=== PATIENT | male | born 1965 | race Caucasian/White ===

== ENCOUNTER 2022-08-09 14:26 | Outpatient (CLI) | payer BC, SELFPAY ==
[2022-08-09 14:33] LABS: Albumin* 4.9 g/dL (3.3-5.0); Chloride* 102 mmol/L (96-114); Sodium* 138 mmol/L (135-149)
[2022-08-09 14:35] LABS: Cholesterol* 258 mg/dL (90-199)
[2022-08-09 14:36] LABS: Alkaline Phosphatase* 55 U/L (40-150); Aspartate Amino Transferase* 44 U/L (12-35); Bilirubin Total* 0.7 mg/dL (0.1-1.5); Blood Urea Nitrogen* 21 mg/dL (7-30); Carbon Dioxide* 29 mmol/L (20-32); Creatinine* 0.7 mg/dL (0.5-1.5); Estimated Glomerular Filt Rate 107 ml/min; Glucose* 94 mg/dL (60-115); Total Protein* 7.8 g/dL (6.0-8.3)
[2022-08-09 14:37] LABS: Alanine Aminotransferase* 36 U/L (4-50); Calcium* 8.5 mg/dL (8.4-10.6); HDL Cholesterol* 73 mg/dL (>=40); LDL Cholesterol Calculated 172 mg/dL (<100); Triglycerides* 65 mg/dL (40-149)
[2022-08-09 19:50] LABS: PSA Screen* 0.55 ng/mL (0.10-4.00)
== END 2022-08-09 14:27 | disposition home or self-care (01) ==
PROVIDERS: PCP Family Medicine; Visit Provider Family Medicine
DX: Z00.00 Encounter for general adult medical examination without abnormal findings (principal); K63.5 Polyp of colon; Z12.5 Encounter for screening for malignant neoplasm of prostate; Z13.6 Encounter for screening for cardiovascular disorders
CPT/HCPCS: 80053; 80061; 84153

== ENCOUNTER 2022-08-18 07:24 | Outpatient (CLI) | payer BC, SELFPAY | END 2022-08-18 07:25 | disposition home or self-care (01) | LOC: OP CLINIC 07:25 | PROVIDERS: PCP Family Medicine; Visit Provider Surgery | DX: Z12.11 Encounter for screening for malignant neoplasm of colon (principal); K63.5 Polyp of colon; K57.30 Diverticulosis of large intestine without perforation or abscess without bleeding; Z86.010 Personal history of colon polyps | CPT/HCPCS: 45385; 88305; 99153; J1200; J2250; J3010 ==

== ENCOUNTER 2023-02-09 06:10 | Emergency (ER) | payer BC, SELFPAY ==
[2023-02-09] VITALS (12 sets, daily range): BP systolic 107–115; BP diastolic 64–86; PULSE 52–60; RESP 16–18; TEMP 36.7; O2SAT 98–100; BMI 20.9
--- NOTE | 2023-02-09 06:48 | CRLHL7_ITS ---
For Patients: As a result of the Century Cures Act, medical imaging exams and procedure reports are released immediately into your electronic medical record. You may view this report before your referring provider. If you have questions, please contact your health care provider. INDICATION: Syncope TECHNIQUE: Chest 2 views. COMPARISON: Chest x-ray September 28, 2017 FINDINGS: Cardiovascular and mediastinum: Heart size and vasculature are normal in caliber and appearance. Lungs and pleural spaces: Lungs are clear. No sign of infiltrate. No sign of pleural effusion. No pneumothorax. Bones and soft tissues: No significant findings. IMPRESSION: No evidence of acute cardiopulmonary process. Dictated by José Miguel Berger MD @ 02/09/2023 7:52:59 AM (Electronically Signed)
--- NOTE | 2023-02-09 06:52 | ED.GENADULT ---
HPI - General Adult General Chief complaint: Syncope/Fainted Stated complaint: nausea, fever, fainting Time Seen by Provider: 02/09/23 06:11 Source: patient and family Mode of arrival: ambulatory Limitations: no limitations History of Present Illness HPI narrative: Patient with no prior cardiac history presents with a syncopal episode. Patient reports that he had felt normally until after dinner. He started to feel fatigued with mild nausea at about 9:00 p.m.. He went to bed early. He woke at 4:00 a.m. with a feeling of weakness, nausea and abdominal cramping like he was about to have diarrhea. Quickly went to the bathroom. As he sat down on the toilet he began to feel very lightheaded as if he was going to pass out. He had a bout of diarrhea and did pass out, falling forward. He does not remember much of the fall but did wake up on the ground. He thinks he was probably out a few minutes. There was no evidence of tongue biting, seizure-like activity. He was able to lift himself back up onto the toilet where he had another large diarrhea type bowel movement. No blood. He felt nauseated but no vomiting. He was able to call for his who came to help him back to bed. He continued to feel nauseated and weak. No chest pain. He does not have any type of wearable heart monitor, Apple watch or fit bit. 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 He has no personal history of cardiac disease. He does have a history of hyperlipidemia inserted statin therapy 1 month ago. He does have a family history of coronary artery disease but not at early ages. Patient with no prior history of syncope. Currently denying any abdominal pain, weakness is improving and nausea is improved as well. No prior Holter monitor or echo. No intoxication, no illicit substances. Past medical history notable only for hyperlipidemia. He has had a few benign surgeries, only prescription long-term medicine is a statin. Denies allergies. Family history notable for coronary artery disease but not premature ages. Nonsmoker. ROS is notable for the GI and generalized symptoms as above as well as the syncope. Otherwise he denies times 12 systems. Related Data Previous Rx's Medication Instructions Recorded albuterol sulfate 90 mcg/actuation 2 puff inhalation Q6H PRN 08/08/22 aerosol inhaler shortness of breath or wheezing #8.5 grams rosuvastatin 10 mg tablet (Crestor) 10 mg PO QHS #90 tabs 01/03/23 Allergies Allergy/AdvReac Type Severity Reaction Status Date / Time No Known Drug Allergies Allergy Verified 02/09/23 06:30 PFSH PFS Medical History Acute low back pain ?M54.50 - Low back pain, unspecified (ICD-10) Benign prostatic hyperplasia with urinary obstruction ?N40.1 - Benign prostatic hyperplasia with lower urinary tract symptoms (ICD-10) ?N13.8 - Other obstructive and reflux uropathy (ICD-10) Colon polyps ?K63.5 - Polyp of colon (ICD-10) Erectile dysfunction ?N52.9 - Male erectile dysfunction, unspecified (ICD-10) Mild persistent asthma ?J45.30 - Mild persistent asthma, uncomplicated (ICD-10) Prostatitis ?N41.9 - Inflammatory disease of prostate, unspecified (ICD-10) Surgical History History of colonoscopy ?Z98.890 - Other specified postprocedural states (ICD-10) Social History Smoking Status: Never smoker Second hand tobacco smoke exposure: No How often do you have a drink containing alcohol: never How often do you have six or more drinks on one occasion: Never AUDIT-C Alcohol total score: 0 Non-prescribed substance use: denies use Exam Const: Vital Signs, click to edit/add: Vital Signs - 24 hr 02/09/23 06:27 02/09/23 06:35 02/09/23 06:40 Temperature 98.0 F Pulse Rate 59 L Pulse Rate [Left P ulse Oximeter] 53 L Respiratory Rate 18 16 Blood Pressure 110/74 Blood Pressure [Ri ght Upper Arm] 115/86 Pulse Oximetry 99 99 99 Oxygen Delivery Me thod Room Air Documenting provider has reviewed patient's vital signs: yes Common normals: no apparent distress and alert General appearance: cooperative, comfortable and well kempt Orientation/consciousness: Yes awake HENMT: Common normals: TM's normal bilaterally Tympanic membrane: TM's normal bilaterally Other: Abrasions consistent with forward fall and forehead and bridge of nose. No skull deformity. Facial bones are otherwise normal with normal jaw. Opens and closes mouth normally. Normal view come mucosa, tongue and dentition, no signs of seizure activity. Normal posterior oropharynx. Eye: Common normals: PERRL and conjunctivae normal General eye: normal appearance of both eyes Conjunctiva: conjunctiva(e) normal Pupil: PERRL Neck & C-Spine: Common normals: full ROM and no lymphadenopathy Cervical spine: cervical ROM normal; no cervical spine tenderness Resp: Common normals: normal respiratory effort, no use of accessory muscles and clear to auscultation bilaterally Effort & inspection: able to speak in complete sentences Auscultation: clear to auscultation bilaterally Cardio: Common normals: regular rate, regular rhythm, S1 normal heart sound, S2 normal heart sound, no murmurs and peripheral pulses 2+ throughout Rate: regular rate Rhythm: regular rhythm Heart sounds: S1 normal and S2 normal Peripheral pulses: pulses 2+ throughout GI: Common normals: Normal to inspection, nondistended, normoactive bowel sounds present, soft to palpation, non-tender, no hepatosplenomegaly and no masses Palpation: soft and no hepatosplenomegaly Extremity: Common normals: normal to inspection, normal capillary refill and no pedal edema Neuro: Common normals: moves all extremities and no focal motor deficits Sensorium/orientation: awake and alert Speech: speech normal Motor exam: no movement abnormalities noted Psych: Appearance: well kempt Attitude: engaged Activity/motor behavior: appropriate eye contact Insight: insight good Judgement: judgment good Skin: Narrative: Slight abrasion to forehead and bridge of nose. No active bleeding Course Vital Signs Vital signs: Initial Vital Signs Temperature 98.0 F 02/09/23 06:27 Temperature Source Temporal Artery Scan 02/09/23 06:27 Pulse Rate 53 L 02/09/23 06:27 Respiratory Rate 18 02/09/23 06:27 Blood Pressure 115/86 02/09/23 06:27 Blood Pressure Mean 95 02/09/23 06:27 Blood Pressure Position Sitting 02/09/23 06:27 Pulse Oximetry 99 02/09/23 06:27 Oxygen Delivery Method Room Air 04/27/23 06:27 Vital Signs Temperature 98.0 F 02/09/23 06:27 Pulse Rate 53 L 02/09/23 06:27 Respiratory Rate 18 02/09/23 06:27 Blood Pressure 115/86 02/09/23 06:27 Pulse Oximetry 99 02/09/23 06:27 Oxygen Delivery Method Room Air 02/09/23 06:27 Temperature 98.0 F 02/09/23 06:27 Pulse Rate 59 L 02/09/23 06:35 Respiratory Rate 16 02/09/23 06:35 Blood Pressure 110/74 02/09/23 06:35 Pulse Oximetry 99 02/09/23 06:40 Oxygen Delivery Method Room Air 02/09/23 06:27 Medical Decision Making MDM Narrative Medical decision making narrative: Suspect vagal syncope, naturally quite bradycardic. Observed heart rate prior to entering room, runs around 52 at rest. Heart rate does increase as high as 68 with activity during exam. Will continue to monitor on application support consultant. Patient has had no further episodes of diarrhea and vomiting, his nausea is improving. Will check basic labs, EKG, give 1 L of LR. Chest x-ray. Would benefit from Holter monitor to determine just have bradycardic he is running in his everyday life, consider echo if this is nonrevealing. Cannot exclude coronary artery disease, structural heart disease, anemia, electrolyte abnormality. Await labs. Update: Patient still not having any chest pain. He continues to have some mild asymptomatic bradycardia 50-60 on monitor, labs and x-ray are reviewed and reassuring. Awaiting 90 minute troponin. My shift is almost finished. Will hand over to my in coming day shift partner to review 2nd troponin and intervene only if abnormal. Discussed findings with patient. Would recommend outpatient Holter monitor. Alarm symptoms reviewed and discussed. He verbalized understanding and agreement. Lab Data Lab results reviewed: Yes I reviewed the patient's lab results Lab results narrative: Overall reassuring, will perform 90 minute troponin. Labs: Lab Results 02/09/23 Range/Units 06:40 WBC 6.73 (4.50-11.00) K/uL RBC 5.18 (4.30-5.90) m/uL Hgb 16.8 (13.5-17.5) gm/dL Hct 47.8 (37.0-53.0) % MCV 92 (80-100) fL MCH 32 (26-34) pg MCHC 35 (32-36) gm/dL RDW Coeff of Marifer 12.4 (11.5-15.5) % Plt Count 237 (140-440) K/uL Neut % (Auto) 86.0 H (42.0-72.0) % Lymph % (Auto) 6.5 L (20-44) % Garfield % (Auto) 5.9 (0.0-11.0) % Eos % (Auto) 1.2 (0.0-7.0) % Baso % (Auto) 0.1 (0.0-3.0) % Neut # (Auto) 5.80 (1.7-7.0) K/uL Lymph # (Auto) 0.40 L (0.90-2.90) K/uL Garfield # (Auto) 0.40 (0.00-0.90) K/UL Eos # (Auto) 0.08 (0.00-0.50) K/uL Baso # (Auto) 0.01 (0.00-0.30) K/uL Sodium 134 L (135-149) mmol/L Potassium 4.8 (3.6-5.1) mmol/L Chloride 104 (96-114) mmol/L Carbon Dioxide 25 (20-32) mmol/L BUN 18 (7-30) mg/dL Creatinine 0.8 (0.5-1.5) mg/dL Estimated Creat Clear 98.04 Estimated GFR 103 ml/min Glucose 145 H (60-115) mg/dL Calcium 9.2 (8.4-10.6) mg/dL Troponin I 0.01 (0.01-0.04) ng/mL C-Reactive Protein 1.4 H (0.5-1.0) mg/dL NT-Pro-B Natriuret Pep 25 pg/mL POC Troponin I 0.03 (0.01-0.04) ng/ml Imaging Data Chest x-ray: Attestation: I have reviewed the pertinent imaging results. My impression: Normal chest x-ray. No signs of cardiomyopathy, pleural effusion or vascular congestion Radiologist's impression: IMPRESSION: No evidence of acute cardiopulmonary process. ECG Data Attestation: I personally reviewed and interpreted this ECG as follows: Prior ECG tracings: not available for review Interpretation: Sinus bradycardia, rate of 51. Good R-wave progression, normal axis. No significant ST or T-wave abnormalities. No ischemia. Other than mild bradycardia, normal EKG. Discharge Plan Discharge Clinical Impression: Vagal bradycardia Patient Disposition: Home w/ Parent or Adult Condition: Improved Instructions: Syncope (ED) Additional Instructions: As we discussed, your heart rate runs naturally low. Unfortunately, when you get GI illness and your body preps to have a large bout of diarrhea, your heart rate and blood pressure will drop. When your heart rate and blood pressure naturally run low, this can cause you to pass out. We see this commonly in athletes. Your given fluids to counteract the low blood pressure and we monitored your heart rate. There are no signs of heart attack, electrolyte abnormality, kidney disease, structural heart disease or major infection. I do suspect that you have a mild viral gastroenteritis, the stomach flu. Be mindful of the fact that your more likely to have these types of episodes than atypical person because your heart rate runs low. You can consider investing in a heart rate monitor such as a SeeClickFix or Apple watch if you choose to monitor this. I would recommend that you see your primary care doctor and have a Holter monitor placed. This is aware will heart monitor for a couple of days which can give us much more information about your heart rhythms and detect any type of abnormality. They will put this on in the office at your primary care provider. For today, drink plenty of fluids and rest. It is okay to use Imodium for diarrhea. Activity Level: No Restrictions Discharge Diet: Regular Prescriptions: No Action albuterol sulfate 90 mcg/actuation HFA aerosol inhaler 2 puff inhalation Q6H PRN (Reason: shortness of breath or wheezing) Qty: 8.5 6RF rosuvastatin [Crestor] 10 mg tablet 10 mg PO QHS Qty: 90 1RF Follow Up/Referrals: Daniel Ford MD [Primary Care Provider] - 7 Days (Holter monitor, recheck after ED visit) Stand Alone Forms: [employer] Info Instructions
[2023-02-09] MEDS: LACTATED RINGERS 1000 ML 1,000 ML IV (06:55)
[2023-02-09 07:02] LABS: Troponin, Point-of-Care* 0.03 ng/ml (0.01-0.04)
[2023-02-09 07:04] LABS: Basophils Absolute Auto 0.01 K/uL (0.00-0.30); Basophils Percent Auto 0.1 % (0.0-3.0); Eosinophils Absolute Auto 0.08 K/uL (0.00-0.50); Eosinophils Percent Auto 1.2 % (0.0-7.0); Hematocrit 47.8 % (37.0-53.0); Hemoglobin* 16.8 gm/dL (13.5-17.5); Immature Granulocytes Abs Auto 0.02 K/uL (0.00-0.30); Immature Granulocytes Pct Auto 0.3 %; Lymphocytes Percent Auto 6.5 % (20-44); Mean Corpuscular HGB Conc 35 gm/dL (32-36); Mean Corpuscular Hemoglobin 32 pg (26-34); Mean Corpuscular Volume 92 fL (80-100); Monocytes Percent Auto 5.9 % (0.0-11.0); Platelet Count* 237 K/uL (140-440); RDW Coefficient of Variation % 12.4 % (11.5-15.5); Red Blood Count 5.18 m/uL (4.30-5.90); White Blood Count* 6.73 K/uL (4.50-11.00)
[2023-02-09 07:16] LABS: Chloride* 104 mmol/L (96-114); Potassium* 4.8 mmol/L (3.6-5.1); Sodium* 134 mmol/L (135-149)
[2023-02-09 07:19] LABS: Carbon Dioxide* 25 mmol/L (20-32); Creatinine* 0.8 mg/dL (0.5-1.5); Est. Creatinine Clearance* 98.04; Estimated Glomerular Filt Rate 103 ml/min
[2023-02-09 07:20] LABS: Blood Urea Nitrogen* 18 mg/dL (7-30); Calcium* 9.2 mg/dL (8.4-10.6); Glucose* 145 mg/dL (60-115)
[2023-02-09 07:22] LABS: C Reactive Protein* 1.4 mg/dL (0.5-1.0)
[2023-02-09 07:32] LABS: NT Pro B Type NatriureticPept* 25 pg/mL; Troponin I* 0.01 ng/mL (0.01-0.04)
[2023-02-09 07:34] LABS: Slide Review Reflex No
== END 2023-02-09 09:00 | disposition home or self-care (01) ==
LOC: ED 07:04
PROVIDERS: Emergency Provider Family Medicine; PCP Family Medicine
DX: R00.1 Bradycardia, unspecified (principal)
CPT/HCPCS: 36415; 71046; 80048; 83880; 84484; 85025; 86140; 93005; 94761; 99283; 99284; J7120

== ENCOUNTER 2023-03-30 11:29 | Outpatient (CLI) | payer BC, SELFPAY ==
--- OUTSIDE RECORDS SUMMARY | 2023-04-02 09:36 | XMS_ITS | Continuity of Care Document ---
Author Name Unknown Organization [facility] Address [address] [place] [address] Phone Care Team Providers Care Hose Tender Name Role Phone Canelo Ramos MD Unavailable Unavailab le Allergies, Adverse Reactions, Alerts Substance Reaction Status Criticality No Known Allergies Active No Inform ation Medications Medication Instructions Dosage Effective Dates (start - stop) Status Comments FISH OIL (unknown strength) Not Available - Active MULTIVITAMINS (unknown strength) Not Available - Active ZYRTEC (unknown strength) Not Available - Active HYDROcodone-acetaminoph en (unknown strength) Not Available - Active ALEVE (unknown strength) Not Available - Active Procedures Procedure Date Postop Followup Visit Pa Assist Low Back Disk Surgery/Decompre ss Postop Followup Visit Low Back Disk Surgery/Decompress 2016 Office/Outpatient Visit,Est, Mod 2016 Office/Outpatient Visit,Est, Mod 2016 Office/Outpatient Visit,New, Mod 2016 Advance Directives Directive Yes / No Effective Date File Name No Information Encounters Encounter Description Practice Location Reason(s) For Visit Diagnoses Date Provider Providers Copied on Encounter [facility], [address], [place], [id number], [place] tel:[phone] [facility] No Information 8 Rachel marcus [facility], [address], [address], [place], [id number] , [place]. tel:[phone] [facility], [address], [place], [id number], [place] tel:[phone] [facility] Encounter for other specified surgical aftercare 8 Ramos Jason . [facility], [address], [address], [place], [place], [id number] , [place]. [phone] Referring Provider: Jess Tavarez [facility] [address] [place], [address]. tel:[phone] [facility], [address], [place], [place], [id number], [place] tel:[phone] [facility] No Information 8 Nadir Keller. [facility], [address] [place] [address] [place] [address], [place], [address], [place]. [phone] Referring Provider: Jess Tavarez [facility] [address] [place], [address]. tel:[phone] [facility], [address], [place], [place], [id number], [place] tel:[phone] [facility] [place] - [facility] Encounter for other specified surgical aftercare [facility], [address], [address], [place], [place], [id number] , [place]. tel:[phone] Referring Provider: Jess Tavarez [facility] [address] [place], [address]. tel:[phone] [facility], [address], [place], [place], [id number], [place] tel:[phone] [facility] No Information [facility] . [facility], [address], [address], [place], [place], [address] , [place]. [phone] Referring Provider: Jess Tavarez [facility] [address] [place], [address]. tel:[phone] Office/Outpat ient Visit,Est, Mod [facility], [address], [facility] [place], [id number], [place] tel:[phone] [facility] Other intervertebral disc displacement, lumbar region 7 [facility], [address] [place] [address], [address], [place], [place], [id number] , [place]. [phone] Referring Provider: Jess Tavarez [facility] [address] [place], [address]. tel:[phone] Office/Outpat ient Visit,Est, Mod [facility], [address], [facility] [place], [id number], [place] tel:[phone] [facility] Other intervertebral disc displacement, lumbar region 7 [facility] er. [facility], [address] [place] [address], [address], [place], [place], [address] , [place]. [phone] Referring Provider: Jess Tavarez [facility] [address] [facility] [place], [address]. tel:[phone] Office/Outpat ient Visit,New, Mod [facility], [address], [facility] [place] [place], [id number], [place] tel:[phone] [facility] [facility] [place] Radiculopathy, lumbar region Sep- 7 [facility] er. [facility], [address] [place] [address], [address], [place], [place], [id number] , [place]. [phone] Referring Provider: Jess Tavarez [facility] [address] [place] [address], [address]. tel:[phone] Family History Family Member Type Diagnosis Age At Onset No Information Payers Payer name Insurance type Covered alliance party ID Lastdee josiehortencia(s) Desiree Smallscarson QUEZADA [id number] Social History Type Description Quantity Date Captured Comments Sex Male Smoking Status No Information Chief Complaint And Reason For Visit No Information Reason For Referral Reason For Referral No Information Plan Of Treatment Date Type Action Status No Information History Of Present Illness Encounter Date Complaint History Of Prese nt Illness No Information Functional Status Date Functional Assessmen t No Information Instructions Date Instruction Additional Joshuar mai Blood Pressure Management Relate d to Unspecified Essential Hypertension Instructed to return to General Practitioner timeframe: 1 Month. Related to Unspecified Essential Hypertension Assessments Type Assessment Date No Information Patient Care Teams Name Effective Dates (start - stop) Status Members No Information
== END 2023-03-30 11:30 | disposition home or self-care (01) ==
LOC: NFLDREF 04-02 09:35
PROVIDERS: PCP Family Medicine; Referring Provider Family Medicine; Visit Provider Family Medicine
DX: E78.00 Pure hypercholesterolemia, unspecified (principal); Z00.00 Encounter for general adult medical examination without abnormal findings; R55 Syncope and collapse; L30.9 Dermatitis, unspecified; Z23 Encounter for immunization
CPT/HCPCS: 80061; 84460

== ENCOUNTER 2023-04-27 13:48 | Outpatient (CLI) | payer BC, SELFPAY ==
--- OUTSIDE RECORDS SUMMARY | 2023-04-27 13:49 | XMS_ITS | Continuity of Care Document ---
Author Name Unknown Organization [facility] Address [address] [place] [address] Phone Care Team Providers Care Car Electronics Installer Name Role Phone Canelo Ramos MD Unavailable Unavailab le Allergies, Adverse Reactions, Alerts Substance Reaction Status Criticality No Known Allergies Active No Inform ation Medications Medication Instructions Dosage Effective Dates (start - stop) Status Comments ZYRTEC (unknown strength) Not Available - Active MULTIVITAMINS (unknown strength) Not Available - Active FISH OIL (unknown strength) Not Available - Active HYDROcodone-acetaminoph [...] Copied on Encounter [facility], [address], [place], [id number], [place] tel:[phone] [facility] No Information 8 Rachel marcus [facility], [address], [address], [place], [id number] , [place]. tel:[phone] [facility], [address], [place], [id number], [place] tel:[phone] [facility] - [facility] Encounter for other specified surgical aftercare 8 Ramos Jason . [facility] [place], [address], [address], [place], [place], [id number] , [place]. [phone] Referring Provider: Jess Tavarez [facility] [address] [place], [address]. tel:[phone] [facility], [address], [place], [place], [id number], [place] tel:[phone] [facility] No Information 8 Nadir Keller. [facility] [place], [address] [place] [address] [address], [place], [address], [place]. [phone] Referring Provider: Jess Tavarez [facility] [address] [place], [address]. tel:[phone] [facility], [address], [place], [place], [id number], [place] tel:[phone] [facility] - [facility] Encounter for other specified surgical aftercare [facility] [place], [address], [address], [place], [place], [id number] , [place]. tel:[phone] Referring Provider: Jess Tavarez [facility] [address] [place], [address]. tel:[phone] [facility], [address], [place], [place], [id number], [place] tel:[phone] [facility] No Information 7 [facility] . [facility] [place], [address], [address], [place], [place], [id number] , [place]. [phone] Referring Provider: Jses Tavarez [facility] [address] [place], [address]. tel:[phone] Office/Outpat ient Visit,Est, Mod [facility], [address], [facility] [place] [id number], [place] tel:[phone] [facility] Other intervertebral disc displacement, lumbar region 7 [facility], [address] [place] [address], [address], [place], [place], [id number] , [place]. [phone] Referring Provider: Jess Tavarez [facility] [address] [place], [address]. tel:[phone] Office/Outpat ient Visit,Est, Mod [facility], [address], [facility] [place], [id number], [place] tel:[phone] [facility] Other intervertebral disc displacement, lumbar region 7 [facility] er. [facility], [address] [place] [address], [address], [place], [place], [address] , [place]. [phone] Referring Provider: Jess Tavarez [facility] [address] [facility] [place], [address]. tel:[phone] Office/Outpat ient Visit,New, Mod [facility], [address], [facility] [place] [place], [id number], [place] tel:[phone] [facility] - [place] Radiculopathy, lumbar region Sep- 7 [facility] er. [facility], [address] [place] [address], [address], [place], [place], [id number] , [place]. [phone] Referring Provider: Jess Tavarez [facility] [address] [place] [address], [address]. tel:[phone] Family History Family Member Type Diagnosis Age At Onset No Information Payers Payer name Insurance type Covered democrat ID Lastdee josiehortencia(s) Desiree Smallscarson QUEZADA [id number] Social History Type Description Quantity Date Captured [...]
== END 2023-04-27 13:49 | disposition home or self-care (01) ==
LOC: RAD 13:48
PROVIDERS: PCP Family Medicine; Visit Provider Family Medicine
DX: R55 Syncope and collapse (principal)
CPT/HCPCS: 93306

== ENCOUNTER 2024-04-25 08:09 | Outpatient (CLI) | payer OTHER, SELFPAY ==
--- OUTSIDE RECORDS SUMMARY | 2024-04-26 02:05 | XMS_ITS | Encounter Summary ---
Author Organization [facility] Address [address] [place] [address] Care Team Providers Care Edge Sawyer Name Role Phone Unavailable Primary Care Provider Unavailabl e Reason for Visit * Reason Onset Date Comments Med Question 04/01/2024 Encounter Details Date Type Department Care Team (Latest Contact Info) Description 04/01/2024 9:45 AM CDT Clinical Communication Virtual Review in [place], [place] [address] [place] [address] Med Question Social History Tobacco Use Types Packs/Day Years Used Date Smoking Tobacco: Never Smokeless Tobacco: Never Alcohol Use Standard Drinks/Week Comments Yes 4 (1 standard drink = 0.6 oz pur e alcohol) [facility] Utilities Answer Date Recorded In the past 12 months has [facility] [employer] gas, oil, or water [employer] threatened to shut off services in your home? No 01/01/2024 Humiliation, Afraid, Rape, and Kick questionnair e Answer Date Recorded Within the last year, have y ou been afraid of your partner or ex-partner? No 08/23/2022 Within the last year, have y ou been humiliated or emotionally abused in other ways by your partner or ex-partner? No Within the last year, have y ou been kicked, hit, slapped, or otherwise physically hurt by your partner or ex-partner? No 08/23/2022 Within the last year, have y ou been raped or forced to have any kind of sexual activity by your partner or ex-partner? No 08/23/2022 Social Connection and Isolat ion Panel [NHANES] Answer Date Recorded In a typical week, how many times do you talk on the phone with family, friends, or neighbors? Once a week 08/23/2022 How often do you get togethe r with friends or relatives? Once a week 08/23/2022 How often do you attend chur ch or mosque services? Never 08/23/2022 Do you belong to any clubs o r organizations such as mu-ism groups, unions, fraternal or athletic groups, or school groups? Yes 08/23/2022 How often do you attend meet ings of the clubs or organizations you belong to? More than 4 times per year 08/23/2022 Are you , , di vorced, , never , or living with a partner? 08/23/2022 AUDIT-C Answer Date Recorded Q1: How often do you have a drink containing alc ohol? 2-3 times a week 08/23/2022 Q2: How many drinks containi ng alcohol do you have on a typical day when you are drinking? 1 or 2 08/23/2022 Q3: How often do you have si x or more drinks on one occasion? Never 08/23/2022 Overall Financial Resource Strain (CARDIA) Answe r Date Recorded How hard is it for you to pa y for the very basics like food, housing, medical care, and heating? Not hard at all 08/23/2022 [facility] - Occupational Stress Questionnaire Answer Date Recorded Do you feel stress - tense, restless, nervous, or anxious, or unable to sleep at night because your mind is troubled all the time - these days? Not at all 08/23/2022 Exercise Vital Sign Answer Date Recorde d On average, how many days pe r week do you engage in moderate to strenuous exercise (like a brisk walk)? 7 days 01/01/2024 On average, how many minutes do you engage in exercise at this level? 120 min 01/01/2024 Hunger Vital Sign Answer Date Recorded Within the past 12 months, y ou worried that your food would run out before you got the money to buy more. Never true 01/01/20 24 Within the past 12 months, t he food you bought just didn't last and you didn't have money to get more. Never true 01/01/2024 PRAPARE - Transportation Answer Date Re corded In the past 12 months, has l ack of transportation kept you from medical appointments or from getting medications? No 12/14 In the past 12 months, has l ack of transportation kept you from meetings, work, or from getting things needed for daily living? No 01/01/2024 Nutrition Answer Date Recorded Nutrition: EVOO Fat Source Yes 12/31 On average, how many serving s of fruits and vegetables do you eat per day (serving size is equal to 1 cup or approximately the size of a tennis ball)? 5 or more 01/01/2024 Dental Answer Date Recorded Dental: Regular Dentist Yes 08/23/20 Employment Answer Date Recorded Employment status Employed and actively working without restrictions 01/01/2024 Housing Stability Answer Date Recorded What is your living situation today? I have a [facility] place to live 01/01/2024 Education Answer Date Recorded What is the highest level of school you have completed or the highest degree you have received? 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 [address] [place] [address] Scheduled Procedures Name Priority Associated Diagnoses Date/Ti me ARTHROPLASTY UNICOMPARTMENTA L MEDIAL KNEE Primary Osteoarthritis Knee Left documented as of this encounter Visit Diagnoses Not on filedocumented in this encounter
--- OUTSIDE RECORDS SUMMARY | 2024-04-26 02:05 | XMS_ITS | Encounter Summary ---
Author Organization [facility] Address [address] [place] [address] Care Team Providers Care Pipelayer Name Role Phone Unavailable Primary Care Provider Unavailabl e Reason for Visit * Reason Onset Date Comments Surgical Scheduling 04/19/2024 Encounter Details Date Type Department Care Team (Latest Contact Info) Description 04/19/2024 Clinical Communication Department of Orthopedic Surgery in [place], [place] [address] [place] [address] Kwasi Simeon M.D. [address] [place] [address] Surgical Scheduling Social History Tobacco Use Types Packs/Day Years Used Date Smoking Tobacco: Never Smokeless Tobacco: Never Alcohol Use Standard Drinks/Week Comments Yes 4 (1 standard drink = 0.6 oz pur e alcohol) [facility] Utilities Answer Date Recorded In the past 12 months has [facility] electric, gas, oil, or water [employer] threatened to shut off services in your [...] often do you attend chur ch or scientologist services? Never 08/23/2022 Do you belong to any clubs o r organizations such as islam groups, unions, fraternal or athletic groups, or [...] and heating? Not hard at all 08/23/2022 [facility] Occupat ional Health - Occupational Stress [...] your living situation today? I have a [employer] [facility] [employer] place to live 01/01/2024 Education Answer Date Recorded What is the highest level of school you have completed or the highest degree you have received? 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 - 04/23/2024 3:36 PM CDT Called, surgery date set for July. All further questions were answered documented in this encounter Plan of Treatment Upcoming Encounters Date Type Department Care Team (Late st Contact Info) Description 07/25/2024 Hospital Encounter [facility] 02 4 AM ADMIT [address] [place] [address] Kwasi Simeon M.D. [address] [place] [address] Scheduled Procedures Name Priority Associated Diagnoses Date/Ti me ARTHROPLASTY UNICOMPARTMENTA L MEDIAL KNEE Primary Osteoarthritis Knee Left documented as of this encounter Visit Diagnoses Not on filedocumented in this encounter
--- OUTSIDE RECORDS SUMMARY | 2024-04-26 02:05 | XMS_ITS | Continuity of Care Document ---
Author Organization [facility] Address [address] [place] [address] Phone Care Team Providers Care Master Printer Name Role Phone Canelo Ramos MD Unavailable [...] Copied on Encounter [facility], [address], [place], [id number], [place] tel:[phone] [facility] No Information 8 Rachel marcus [facility], [address], [address], [place], [id number] , [place]. tel:[phone] [facility], [address], [place], [id number], [place] tel:[phone] [facility] - [facility] Encounter for other specified surgical aftercare 8 Rachel corona. [place] [facility], [address], [address], [place], [place], [id number] , [place]. [phone] Referring Provider: Jess Tavarez [facility] [address] [place], [address]. tel:[phone] [facility], [address], [place], [place], [id number], [place] tel:[phone] [facility] No Information 8 Warren Keller. [facility], [address] [place] [address], [place], [address], [place]. [phone] Referring Provider: Jess Tavarez [facility] [address] [place], [address]. tel:[phone] [facility], [address], [place], [place], [id number], [place] tel:[phone] [facility] - [facility] Encounter for other specified surgical aftercare 8 Rachel corona. [place] [facility], [address], [address], [place], [place], [id number] , [place]. [phone] Referring Provider: Jess Tavarez [facility] [address] [place], [address]. tel:[phone] [facility], [address], [place], [place], [id number], [place] tel:[phone] [facility] No Information 7 Rachel corona. [place] [facility], [address], [address], [place], [place], [id number] , [place]. tel:[phone] Referring Provider: Jess Tavarez [facility] [address] [place], [address]. tel:[phone] Office/Outpat ient Visit,Est, Mod [facility], [address], [place], [id number], [place] tel:[phone] [facility] Other intervertebral disc displacement, lumbar region 7 [facility] er. [facility], [address], [address], [place], [place], [id number] , [place]. [phone] Referring Provider: Jess Tavarez [facility] [address] [place], [address]. tel:[phone] Office/Outpat ient Visit,Est, Mod [facility], [address], [place], [id number], [place] tel:[phone] [facility] Other intervertebral disc displacement, lumbar region 7 [facility]. [facility], [address] [place] [address], [address], [place], [place], [id number] , [place]. [phone] Referring Provider: Jess Tavarez [facility] [address] [facility] [place], [address]. tel:[phone] Office/Outpat ient Visit,New, Mod [facility], [address], [place], [id number], [place] tel:[phone] [facility] - [place] [facility], lumbar region Sep- 7 [facility], [address] [place] [address], [address], [place], [place], [address] , [place]. [phone] Referring Provider: Jess Tavarez [facility] [address] [place], [address]. tel:[phone] Family History Family Member Type Diagnosis Age At Onset No Information Payers Payer name Insurance type Covered republican ID Fahad banks(s) Desiree Smallscarson QUEZADA [id number] Social History Type Description Quantity Date Captured Comments Sex Male Smoking Status No Information Chief Complaint And Reason For Visit No Information Reason For Referral Reason For Referral No Information History Of Present Illness Encounter Date Complaint History Of Prese nt Illness No Information Functional Status Date Functional Assessmen t No Information Instructions Date Instruction Additional Infor mai Blood Pressure Management Relate d to Unspecified Essential Hypertension Instructed to return to General Practitioner timeframe: 1 Month. Related to Unspecified Essential Hypertension Assessments Type Assessment Date No Information Patient Care Teams Name Effective Dates (start - stop) Status Members No Information
--- OUTSIDE RECORDS SUMMARY | 2024-04-26 02:05 | XMS_ITS | Encounter Summary ---
Author Organization [facility] Address [address] [place] [address] Care Team Providers Care Local Company Hazmat Driver Name Role Phone Unavailable Primary Care Provider Unavailabl e Reason for Referral * Outpatient (Routine) - Closed Specialty Diagnoses / Procedures Referred By Alex duff Referred To Contact Diagnoses Pain Knee Left Procedures DX Knee Left 4+ Views Aaron Fisher M.D. [address] [address] [facility] Referral ID Status Reason Start Date Expiration Date Visits Re quested Visits Authorized [id number] Closed 12/25/2023 12/24/2024 1 1 Encounter Details Date Type Department Care Team (Late st Contact Info) Description 12/22/2023 Clinical Communication Department of Sports Medicine in [place], [place] [address] [place] [address] Aaron Fisher M.D. [address] [address] Social History Tobacco Use Types Packs/Day Years Used Date Smoking Tobacco: Never Smokeless Tobacco: Never Alcohol Use Standard Drinks/Week Comments Yes 5 (1 standard drink = 0.6 oz pur e alcohol) [facility] Utilities Answer Date Recorded In the past 12 months has [facility] electric, gas, oil, or water company threatened to shut off services in your [...] week 08/23/2022 How often do you attend [facility] or shinto services? Never 08/23/2022 Do you belong to any clubs o r organizations such as lutheran groups, unions, fraternal or athletic groups, or [...] and heating? Not hard at all 08/23/2022 [facility] of Occupat ional Health - Occupational Stress [...] your living situation today? I have a [facility] place to live 01/01/2024 Education Answer Date Recorded What is the highest level of school you have completed or the highest degree you have received? 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 [address] [place] [address] Scheduled Procedures Name Priority Associated Diagnoses Date/Ti me ARTHROPLASTY UNICOMPARTMENTA L MEDIAL KNEE Primary Osteoarthritis Knee Left documented as of this encounter Results * DX Knee Left 4+ Views (01/01/2024 10:37 AM CDT) Anatomical Region Laterality Modality Lower Extremity, Knee, Muscu loskeletal RST LOS, Musculoskeletal ARZ LOS, Muskuloskeletal FLA LOS Left Digit al Radiography Impressions 01/01/2024 11:05 AM CDT Compared to 09/27/2022 there is been significant interval progression in medial compartment narrowing involving the left knee with hypertrophic changes. There is [id number] on PA flexion on the left. Hypertrophic changes left patellofemoral joint has also slightly worsened. Small loose bodies are present on the left including a small loose body within the patellofemoral joint. Moderate synovitis or effusion left knee. Narrative 01/01/2024 11:05 AM CDT EXAM: ??DX KNEE LEFT 4+ VIEWS Procedure Note Lisa Bean M.D. - 01/01/2024 EXAM: DX KNEE LEFT 4+ VIEWS IMPRESSION: Compared to 09/27/2022 there is been significant interval progression inmedial compartment narrowing involving the left knee with hypertrophicchanges. There is [id number] on PA flexion on the left. Hypertrophicchanges left patellofemoral joint has also slightly worsened. Small loose bodies arepresent on the left including a small loose body within the patellofemoraljoint. Moderate synovitis or effusion left knee. Aaron [facility] ING PROCEDURES documented in this encounter Visit Diagnoses Diagnosis Pain Knee Left- Primary Pain Knee Left documented in this encounter
--- OUTSIDE RECORDS SUMMARY | 2024-04-26 02:05 | XMS_ITS | Clinical Summary ---
Author Organization [facility] Address [place], [place] [address] Care Team Providers Care Centura Technical Lead Senior Developer Name Role Phone Corby Jess S Primary Care Provider [phone] Allergies No known active allergies Medications Medication Sig Dispensed Refills Start Date End Date Status CETIRIZINE HCL (ZYRTEC ORAL) Take 1 Tab by mouth once daily. Active ALBUTEROL INHL Inhale 2 Puffs by mouth every 4 hours if needed. Active HYDROcodone-acetam inophen, 5-325 mg, (NORCO) per tabletIndications: Lumbar disc herniation Take 1 to 2 tablets by mouth every 4 hours if needed for Pain Max acetaminophen dose: 4000 mg in 24 hrs. 60 tablet 10/12/2017 Active Active Problems Problem Noted Date Diagnosed Date Lumbar disc herniation 10/12/2017 Social History Tobacco Use Types Packs/Day Years Used Date Smoking Tobacco: Former Smokeless Tobacco: Never Alcohol Use Standard Drinks/Week Comments Yes 3 (1 standard drink = 0.6 oz pur e alcohol) Sex and Gender Information Value Date Recorded Sex Assigned at Not on file Gender Identity Not on file Sexual Orientation Not on file Obstetrics History Last Filed Vital Signs Vital Sign Reading Time Taken Comments Blood Pressure 115/77 10/13/2017 8:00 AM WHEEL PRESS OPERATOR Pulse 50 10/13/2017 8:00 AM WHEEL PRESS OPERATOR Temperature 37.1 ??C (98.7 ??F) 10/13/2017 8:00 AM CS T Respiratory Rate 16 10/13/2017 8:00 AM WHEEL PRESS OPERATOR Oxygen Saturation 100% 10/13/2017 8:00 AM WHEEL PRESS OPERATOR Inhaled Oxygen Concentration - - Weight 66.1 kg (145 lb 11.6 oz) 017 11:59 AM WHEEL PRESS OPERATOR Height 177.8 cm (5' 10) 10/12/2017 11: 59 AM WHEEL PRESS OPERATOR Body Mass Index 20.91 10/12/2017 11:59 AM WHEEL PRESS OPERATOR Plan of Treatment Health Maintenance Due Date Last Done Comments Tdap 1976 Depression screening for age 12+ 1977 HIV for age 15-65 1980 BMI (ht and wt on same day) for age 18+ 1983 Hepatitis C screening for ag e 18-79 1983 Tetanus booster 1985 Colonoscopy through age 75 2010 Lipids for age 45-75 2010 Zoster (shingles) series for age 50+ (1 of 2) 2015 COVID-19 vaccine series (2022- season) 2023 08/31/2021, 01/30/2021, 01/09/2021 Influenza for age 50-64 06/16/2024 Pneumococcal series for age 6-64 Aged Out No longer eligible b ased on patient's age to complete this topic Advance Directives * Full Code (Latest Code Status on File) Date Activated Date Inactivated Comments 10/12/2017 5:16 PM 10/13/2017 4:16 PM Question Answer Comments Code Status Discussion: Per Existing Order * Full Code Date Activated Date Inactivated Comments 10/12/2017 11:53 AM 10/12/2017 5:10 PM Question Answer Comments Code Status Discussion: Per Existing Order Care Teams Centura Technical Lead Senior Developer Relationship Specialty Start Date End Date Jess Tavarez PCP - General Family Practice 10/06/17
--- OUTSIDE RECORDS SUMMARY | 2024-04-26 02:05 | XMS_ITS | Encounter Summary ---
Author Organization [facility] Address [address] [place] [address] Care Team Providers Care Outdoor Pursuits Instructor Name Role Phone Unavailable Primary Care Provider Unavailabl e Reason for Visit * Outpatient (Routine) - Closed Specialty Diagnoses / Procedures Referred By Alex duff Referred To Contact Orthopedic Surgery Diagnoses Pain Knee Left Primary Osteoarthritis Knee Left Aaron Fisher M.D. [address] [facility] [address] [place] [address] Health System Referral ID Status Reason Start Date Expiration Date Visits Re quested Visits Authorized [id number] Closed 01/01/2024 07/02/2025 1 1 Encounter Details Date Type Department Care Team (Latest Contact Info) Description 04/03/2024 9:00 AM CDT Comprehensive Visit Department of Orthopedic Surgery in [place], [place] [address] [place] [phone] Kwasi Simeon M.D. [address] [place] [phone] Pain Knee Left; Primary Osteoarthritis Knee Left Social History Tobacco Use Types Packs/Day Years Used Date Smoking Tobacco: Never Smokeless Tobacco: Never Alcohol Use Standard Drinks/Week Comments Yes 4 (1 standard drink = 0.6 oz pur e alcohol) [facility] Utilities Answer Date Recorded In the past 12 months has [employer], gas, oil, or water [employer] threatened to shut off services in your [...] often do you attend chur ch or hoahaoism services? Never 08/23/2022 Do you belong to any clubs o r organizations such as rastafari groups, unions, fraternal or athletic groups, or [...] and heating? Not hard at all 08/23/2022 [facility] [place] of Occupat ional Health - Occupational Stress [...] your living situation today? I have a [facility] place to live 01/01/2024 Education Answer Date Recorded What is the highest level of school you have completed or the highest degree you have received? 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 - 04/03/2024 9:00 AM CDT Images from the original note were not included. SUBJECTIVE REASON FOR VISIT Krishna Mounika Rubin is a 58 y.o. male who presents to the office today for consultation regarding left knee pain. Pain reported: HISTORY OF PRESENT ILLNESS Krishna Rubin is a 58 y.o. male who presents to the office today for consultation regarding left knee pain. he has engaged in a comprehensive non operative treatment program, including, but not limited to NSAIDS, activity modification, muscle strengthening, Physical Therapy, Tylenol,. Mr. Rubin returns in follow up. He reports that following the US-guided left knee aspiration and Orthovisc and PRP injection performed on 09/27/2022 he had about 60-70% relief in symptoms for abouta year. After that pain has gradually returned. In the last couple months he's noticed an increase in left knee instability, and buckling. He notes his pain is located primarily in the medial knee. It is intermittent. He has a intermittent left knee swelling. He denies any mechanical symptoms such as catching, clicking or locking. His pain is worse with uneven ground, jumping and running. He denies pain at night. He remains active with swimming, cycling, walking the dogs, and strength training.To help manage his symptoms he's been wearing a knee sleeve and medial director communications which has been helpful for him. Knee Function Analysis (left knee ) Pain: walking and stairs Location of pain: medial Night pain: mild (occasional) Use of knee brace: yes Supports: none Limp: slight Distance walked: 5 - 10 blocks Stairs: up and down with handrail Rise from chair: able with ease (no arms) Limitation of activities: mild Patient's response: the same Medications: yes, NSAIDs Other LE joint involvement (Ryan all that apply): right knee REVIEW OF SYSTEMS Prior DVT / PE: no Diabetes mellitus: no Active tobacco use: no Known bleeding disorder: no Chronic anticoagulation: no Immunosuppression: no PERTINENT PAST MEDICAL AND SURGICAL HISTORY #1 Pain Knee Left #2 Primary Osteoarthritis Knee Left #3 Radiculopathy Lumbar #4 Asthma Mild Intermittent (HCC) #5 Pain Leg has a past medical history of Arthritis, Asthma NOS (05/16/2016), Hyperlipidemia, Other Specified Health Status (10/13/2017), and Polyp Colon (07/16/2023). has a past surgical history that includes Sinus surgery (1999); Vasectomy (1998); Other surgical history (2011); FUSION SPINE TRANSFORAMINAL INTERBODY LUMBAR (N/A, 12/02/2014); Back surgery (2017); LAMINECTOMY LUMBAR (N/A, 01/12/2021); and Hernia repair (2014). CURRENT MEDICATIONS Prior to Admission Medications Taking? Last Dose Informant Start Date End Date LT docosahexaenoic acid/epa (FISH OIL ORAL) -- -- -- -- Take 1 capsule by mouth daily. Notes: Strength unknown fexofenadine (LINDA ALLERGY) 180 mg tablet -- -- 11/03/18 -- Take 180 mg by mouth daily as needed for allergies. multivitamin tablet -- -- 10/31/14 -- Take 1 tablet by mouth every morning. naproxen sodium (ALEVE/ANAPROX) 220 mg tablet -- Self -- -- Take 220 mg by mouth 2 (two) times a day as needed for pain. rosuvastatin (CRESTOR) 10 mg tablet -- -- 12/30/23 -- Take 10 mg by mouth at bedtime. Ventolin HFA 90 mcg/actuation inhaler -- -- 09/08/20 -- Inhale 2 puffs every 4 (four) hours as needed for wheezing or shortness of breath. OBJECTIVE Vital Signs vitals were not taken for this visit. PHYSICAL EXAMINATION GENERAL: Very pleasant 58 y.o. year old male in no acute distress. STRENGTH: All major muscle groups of the bilateral lower extremities have normal and symmetric muscle strength, bulk, and tone. NEURO: Normal light touch sensation throughout the bilateral lower extremities. GAIT: Gait is non-antalgic. MUSCULOSKELETAL: Range of motion is from a few degrees short of full extension to 125?? of flexion.There is a trace effusion present. No warmth or erythema about the knee. Negative Yadi, negativeposterior drawer, positive bounce home, negative Dillon, positive patellar grind, 1+ patellar crepitus. There is mild tenderness palpation over the posteromedial joint line and about the medial andlateral patellar facet. Knee Function Analysis (left knee ) Extension (Active):0 Flexion (Active): 130 degrees Extension (Passive):0 Flexion (Passive): 130 degrees Medial-Lateral Instability (Measured in Full Extension): 5-10 degrees Anterior-Posterior Instability (Measured in Position of Maximum Laxity: < 5 mm Angulation in Degrees: -8 to -5 degrees (varus) Effusion:slight Synovitis:none Muscle Strength: good Peripheral pulses: normal Ortho Exam DIAGNOSTICS Labs: No results found for this or any previous visit (from the past 72 hour(s)).No results found for this visit on 04/03/24 (from the past 336 hour(s)). Imagin22-Dec-2023 10:26:53 Exam: DX KNEE LEFT 4+V Patient: Krishna Rubin ([phone]) : 1965 Reason for Exam left knee pain Dx: Pain Knee Left [M25.562 (ICD-10-CM)] ............................................................................. IMPRESSION: Compared to 09/27/2022 there is been significant interval progression in medial compartment narrowing involving the left knee with hypertrophic changes. There is [id number] on PA flexion on the left. Hypertrophic changes left patellofemoral joint has also slightly worsened. Small loose bodies are present on the left including a small loose body within the patellofemoral joint. Moderate synovitis or effusion left knee. EXAM: DX KNEE LEFT 4+ VIEWS Signed by: Lydia Helton M.D. on 01/01/2024 11:05 AM, Pager: [phone] Read/Performed by: LYDIA HELTON, Pager: [phone] ASSESSMENT / PLAN #1 Pain Knee Left #2 Primary Osteoarthritis Knee Left I discussed the clinical and radiographic findings with Krishna Rubin. he has failed a comprehensive non-operative treatment program as outlined in the history of present illness. Mr. Rubin Javi feel that the pain and limitations on activities of daily living are bad enough to warrant surgical intervention. We discussed Left Total Knee Arthroplasty. Mr. Rubin would like to proceed. All questions answered. Informed Consent: The patient understands that the risks include but are not limited to , medical problems, infection, bleeding, blood clot problems, nerve damage, dislocation problems, leg length discrepancy, prosthetic loosening, wear or failure, or ongoing pain. Discussed the potential for overlapping surgery and how we manage that effectively. Discussed some of the potential risks of opioid medications and strategies used to reduce those risks. PATIENT EDUCATION: Education was discussed at today's appointment. A learning needs assessment was performed. Primary learner: Krishna Rubin Barriers to learning: None Preferred language: Faroese Learning preferences include: Seeing and doing. Discussed: Diagnosis and treatment plan. Demonstrated: Understanding of material discussed. Patient education materials given: After visit summary. Learner response: Learner demonstrated understanding. documented in this encounter Plan of Treatment Upcoming Encounters Date Type Department Care Team (Late st Contact Info) Description 07/25/2024 Hospital Encounter [facility] 02 4 AM ADMIT [address] [place] [phone] Kwasi Simeon M.D. [address] [place] [address] Scheduled Procedures Name Priority Associated Diagnoses Date/Ti me ARTHROPLASTY UNICOMPARTMENTA L MEDIAL KNEE Primary Osteoarthritis Knee Left documented as of this encounter Visit Diagnoses Diagnosis Pain Knee Left Primary Osteoarthritis Knee Left documented in this encounter
--- OUTSIDE RECORDS SUMMARY | 2024-04-26 02:05 | XMS_ITS | Encounter Summary ---
Author Organization [facility] Address [address] [place] [id number] Care Team Providers Care Account Resolution Expert Name Role Phone Unavailable Primary Care Provider Unavailabl e Reason for Referral * Specialty Diagnoses / Procedures Referred By Alex duff Referred To Contact Jeimy Muniz APRN, C.N.P. [address] [place] [phone] [facility] Referral ID Status Reason Start Date Expiration Date Visits Re quested Visits Authorized Scheduling Instructions Anticipated Surgery Date is 07/25. If schedulers are having a hard time finding class availability and/or patient needs an rope laying machine operator, call [phone] to assist with scheduling. * Outpatient (Routine) - Authorized Specialty Diagnoses / Procedures Referred By Alex duff Referred To Contact Orthopedic Surgery Jeimy Muniz APRN, C.N.P. [address] [place] [phone] Kwasi Simeon M.D. [address] [place] [phone] Referral ID Status Reason Start Date Expiration Date V isits Requested Visits Authorized [id number] Authorized 04/23/2024 10/23/2025 1 1 * Outpatient (Routine) - Authorized Specialty Diagnoses / Procedures Referred By Alex duff Referred To Contact Anesthesiology Diagnoses Preoperative Exam Jeimy Muniz APRN, C.N.P. [address] [place] [phone] [facility] Referral ID Status Reason Start Date Expiration Date V isits Requested Visits Authorized [id number] Authorized 04/23/2024 10/23/2025 1 1 * Outpatient (Routine) - Authorized Specialty Diagnoses / Procedures Referred By Alex duff Referred To Contact Diagnoses Preoperative Exam Procedures DX Hip to Ankle Standing Jeimy Muniz APRN, C.N.P. [address] [place] [phone] [facility] Referral ID Status Reason Start Date Expiration Date V isits Requested Visits Authorized [id number] Authorized 04/23/2024 04/23/2025 1 1 Encounter Details Date Type Department Care Team (Late st Contact Info) Description 04/23/2024 Orders Only Department of Orthopedic Surgery in [place], [place] [address] [place] [phone] Jeimy Muniz APRN, C.N.P. [address] [place] [phone] Preoperative Exam (Primary Dx) Social History Tobacco Use Types Packs/Day Years Used Date Smoking Tobacco: Never Smokeless Tobacco: Never Alcohol Use Standard Drinks/Week Comments Yes 4 (1 standard drink = 0.6 oz pur e alcohol) [facility] Utilities Answer Date Recorded In the past 12 months has e [employer], gas, oil, or water [employer] threatened to shut off services in your [...] often do you attend chur ch or tenriism services? Never 08/23/2022 Do you belong to any clubs o r organizations such as buddhist groups, unions, fraternal or athletic groups, or [...] and heating? Not hard at all 08/23/2022 [facility] of Occupat ional Health - Occupational Stress [...] your living situation today? I have a [facility] place to live 01/01/2024 Education Answer Date Recorded What is the highest level of school you have completed or the highest degree you have received? 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 [address] [place] [address] Scheduled Orders Name Type Priority Associated Diagnoses Order Schedule DX Hip to Ankle Standing Imaging RAD - Routine (most inpatients and all outpatients) Preoperative Exam Expected: 07/24/2024 (Approximate), Expires: 04/23/2025 Basic Metabolic Panel Lab Routine Preoperative Exam Expected: 07/24/2024, Expires: 04/23/2025 CBC without Differential Lab Routine Preoperative Exam Expected: 07/24/2024, Expires: 04/23/2025 Scheduled Procedures Name Priority Associated Diagnoses Date/Ti me ARTHROPLASTY UNICOMPARTMENTA L MEDIAL KNEE Primary Osteoarthritis Knee Left Scheduled Referrals Name Type Priority Associated Diagnoses Order Schedule Preoperative Evaluation [facility]IA consult (clinic) Outpatient Referral Routine Preoperative Exam Expected: 07/24/2024, Expires: 07/24/2025 Orthopedic Surgery Pre Op (clinic) Outpatient Referral Routine Expected: 07/24/2024, Expires: 07/24/2025 Pre-Op Total Joint (Hip or Knee): General education regarding total joint (hip or knee) replacement surgery and recovery, post-operative safety guidelines, prevention of complications after surgery and post-operative physical rehabilitation. (Small group) Outpatient Referral Routine Preoperative Exam Expected: 07/11/2024, Expires: 07/24/2025 documented as of this encounter Visit Diagnoses Diagnosis Preoperative Exam- Primary documented in this encounter
--- OUTSIDE RECORDS SUMMARY | 2024-04-26 02:05 | XMS_ITS | Clinical Summary ---
Author Organization [facility] Address [address] [place] [address] Care Team Providers Care Commercial Assistant Name Role Phone Unavailable Primary Care Provider Unavailabl e Source Comments Patient records contain information from all sites at [facility]. For routine questions regarding patient records, call [phone] during business hours, M-F 8:00 AM - 5:00 PM Central Time. Record requests for emergency care only can be directed to [phone] at any time.[facility] Allergies No known active allergies Medications Medication Sig Dispensed Refills Start Date End Date Status multivitamin tablet Take 1 tablet by mouth every morning. 10/31/2014 Active fexofenadine (LINDA ALLERGY) 180 mg tablet Take 180 mg by mouth daily as needed for allergies. 11/03/2018 Active Ventolin HFA 90 mcg/actuation inhaler Inhale 2 puffs every 4 (four) hours as needed for wheezing or shortness of breath. 09/08/2020 Active naproxen sodium (ALEVE/ANAPROX) 220 mg tablet Take 220 mg by mouth 2 (two) times a day as needed for pain. Active docosahexaenoic acid/epa (FISH OIL ORAL) Take 1 capsule by mouth daily. Active rosuvastatin (CRESTOR) 10 mg tablet Take 10 mg by mouth at bedtime. 12/30/2023 Active Active Problems Problem Noted Date Diagnosed Date Pain Leg 01/12/2021 Asthma Mild Intermittent 01/07/2021 Radiculopathy Lumbar 12/31/2020 Overview: Added automatically from request for surgery [id number] Pain Knee Left Primary Osteoarthritis Knee Left Encounters Date Type Department Care Team Description 04/23/2024 Orders Only Department of Orthopedic Surgery in [place], [place] [address] [place] [phone] Jeimy Muniz, YAZMIN, C.N.P. Preoperative Exam (Primary Dx) 04/19/2024 Clinical Communication Department of Orthopedic Surgery in [place], [place] [address] [place] [phone] Kwasi Simeon M.D. Surgical Scheduling 04/03/2024 9:00 AM CDT Comprehensive Visit Department of Orthopedic Surgery in [place], [place] [address] [place] [phone] Kwasi Simeon M.D. Pain Knee Left; Primary Osteoarthritis Knee Left 04/01/2024 9:45 AM CDT Clinical Communication Virtual Review in [place], [place] 200 [place] [address] Med Question from Last 3 Months Immunizations Name Administration Dates Next Due Influenza Split 07/16/2014 SARS-COV-2 (COVID-19) - PFIZ ER (Discontinued)(12 years or older) 08/31/2021 influenza vaccine quad (FLUZ ONE/FLUARIX) (6 months and older)(PF) 08/31/2021 Family History Medical History Relation Name Comments Hyperlipidemia Father Moshe Rubin currently meggan ng treated Hypertension Father Moshe Rubin currently being treated Stroke Father Moshe Rubin full recovery Lung cancer Mother Lakesha Rubin Non-small c ell lung cancer (non-smoker) Thyroid cancer Mother Lakesha Rubin Suicide Attempts Son Juwan Rubin Age 19 Relation Name Status Comments Father Moshe Rubin Mother Lakesha Rubin Son Juwan Rubin Social History Tobacco Use Types Packs/Day Years Used Date Smoking Tobacco: Never Smokeless Tobacco: Never Tobacco Cessation:Counseling Given: Not Answered Alcohol Use Standard Drinks/Week Comments Yes 4 (1 standard drink = 0.6 oz pur e alcohol) [facility] Utilities Answer Date Recorded In the past 12 months has e [employer], gas, oil, or water [employer] threatened to shut off services in your [...] often do you attend chur ch or rastafari services? Never 08/23/2022 Do you belong to any clubs o r organizations such as latter day groups, unions, fraternal or athletic groups, or [...] and heating? Not hard at all 08/23/2022 [facility] [place] of Occupat ional Health - Occupational Stress [...] your living situation today? I have a [facility] place to live 01/01/2024 Education Answer Date Recorded What is the highest level of school you have completed or the highest degree you have received? 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, [place]EL[place]) 12/30/2019 Sex and Gender Information Value Date Recorded Sex Assigned at Male 08/23/2022 3:00 PM RUBBER SPLICER Gender Identity Male 07/09/2018 12:53 PM CDT Sexual Orientation Straight 07/09/2018 12 :53 PM CDT Last Filed Vital Signs Vital Sign Reading Time Taken Comments Blood Pressure 120/82 01/13/2021 11:29 AM CDT Pulse 58 01/13/2021 11:29 AM CDT Temperature 36.7 ??C (98.1 ??F) 01/13/2021 11:29 AM C DT Respiratory Rate 14 01/13/2021 12:27 PM CDT Oxygen Saturation 100% 01/13/2021 7:30 AM CDT Inhaled Oxygen Concentration - - Weight 68.3 kg (150 lb 9.2 oz) 01/12/2021 7:28 A M CDT Height 179 cm (5' 10.47) 01/12/2021 7:28 AM CDT Body Mass Index 21.32 01/12/2021 7:28 AM CDT Plan of Treatment Upcoming Encounters Date Type Department Care Team (Late st Contact Info) Description 07/25/2024 Hospital Encounter RST ROEI 02 4 AM ADMIT [address] [place] [address] Kwasi Simeon M.D. [address] [place] [address] Scheduled Procedures Name Priority Associated Diagnoses Date/Ti me ARTHROPLASTY UNICOMPARTMENTA L MEDIAL KNEE Primary Osteoarthritis Knee Left Health Maintenance Due Date Last Done Comments CT Colonography 1965 Cologuard 1965 Colonoscopy 1965 Colorectal Cancer Surveillance 1965 HIV Screening 1965 Hepatitis C Screening 1965 Lipid (Cholesterol) Screening 1965 Hepatitis B Vaccines (1 of 3 - 19+ 3-dose series) 1984 Zoster Vaccines (1 of 2) 2015 Pneumococcal vaccine (0-64 y ears) (2 of 2 - PCV) 04/27/2018 04/27/2017 COVID-19 Vaccine (4 - 2022-2 4 season) 2023 08/31/2021, 01/30/2021, 01/09/2021 Depression Screening (Annual PHQ-2) 10/16/2023 Fasting Glucose for Diabetes Screening 01/11/2024 01/10/2021 Influenza Vaccine (#1) 2024 2, 08/31/2021, 09/01/2020, Additional history exists DTaP,Tdap,and Td Vaccines (3 - Td or Tdap) 03/30/2033 03/30/2023, 10/01/2012, 06/19/2002 Medical Devices Implanted Type Area Nca Certified Concierge Device Identifier Shelf Expiration Date Model / Serial / Lot [place] Flex 10x2.5cm - Layton [id number] Implanted:Qty: 1 on 12/02/2014 Bone or Tissue Other/Legacy - See Implant Description Spinalgraft Technologies Description:Device Manufactu rer - Spinalgraft Technologies. Body Location - Other. spine fusion. Device Status Text - [id number]. Chips Cancellous Canpac 25cc - Layton [id number] Implanted:Qty: 1 on 12/02/2014 Bone or Tissue Other/Legacy - See Implant Description Allosource Description:Device Manufactu rer - Allosource. Body Location - Other. spine fusion. Device Status Text - [id number]. Screw Set Precept - Layton [id number] Implanted:Qty: 4 on 12/02/2014 Spine Implant NuVasive Description:Device Manufactu rer - Nuvasive Inc.. Device Status Text - [id number]. Huber Precept Ti 45mm Prebent Lordotic - Layton [id number] Implanted:Qty: 1 on 12/02/2014 Spine Implant NuVasive Description:Device Manufactu rer - Nuvasive Inc.. Device Status Text - [id number] [id number]. Huber Precept Ti 40mm Prebent Lordotic - Layton [id number] Implanted:Qty: 1 on 12/02/2014 Spine Implant NuVasive Description:Device Manufactu rer - Nuvasive Inc.. Device Status Text - [id number] [id number]. Screw Precept Shank 5.5 X 50mm Mod - Layton [id number] Implanted:Qty: 2 on 12/02/2014 Spine Implant NuVasive Description:Device Manufactu rer - Nuvasive Inc.. Device Status Text - [id number] [id number]. K-Wire Precept Nit Bevel Tip - Layton [id number] Implanted:Qty: 4 on 12/02/2014 Spine Implant NuVasive Description:Device Manufactu rer - Nuvasive Inc.. Device Status Text - [id number] [id number]. Screw Precept Polyaxial 10.5 X 50mm - Layton [id number] Implanted:Qty: 2 on 12/02/2014 Spine Implant NuVasive Description:Device Manufactu rer - Nuvasive Inc.. Device Status Text - [id number] [id number]. Screw Precept Tulip Modular - Layton [id number] Implanted:Qty: 2 on 12/02/2014 Spine Implant NuVasive Description:Device Manufactu rer - Nuvasive Inc.. Device Status Text - SPINE [id number]. Peek L (O) 8 X10 X 35mm 5 Degree - Layton [id number] Implanted:Qty: 1 on 12/02/2014 Spine Implant NuVasive Description:Device Manufactu rer - Nuvasive Inc.. Device Status Text - SPINE [id number]. Procedures Procedure Name Priority Date/Time Associated Diagnosis Comments BASIC METABOLIC PANEL, S/P Routine 01/10/2021 10:02 AM CDT Preanesthetic Medical Exam from Last 3 Months or Most Recently Relevant to Health Maintenance Results * (ABNORMAL) Basic Metabolic Panel (01/10/2021 10:02 AM CDT) Potassium, S 6.1(CH) 3.6 - 5.2 mmol/L 01/10/2021 11:04 AM CDT DTL Sodium, S 139 135 - 145 mmol/L 01/10/2021 11:04 AM CDT DTL Chloride, S 103 98 - 107 mmol/L 01/10/2021 11:04 AM CDT DTL Bicarbonate, S 29 22 - 29 mmol/L 01/10/2021 11:04 AM CDT DTL Anion Gap 7 7 - 15 01/10/2021 11:04 AM CDT DTL BUN (Blood Urea Nitrogen), S 24 8 - 24 mg/dL 01/10/2021 11:04 AM CDT DTL Creatinine 0.88 0.74 - 1.35 mg/dL 01/10/2021 11:04 AM CDT DTL eGFR-Non Black/ >90 >=60 mL/min/BSA 01/10/2021 11:04 AM CDT DTL Comment: ----ADDITIONAL INFORMATION---- Estimated GFR calculated using the 2009 CKD_EPI creatinine equation. eGFR-Black/Afri can Malagasy >90 >=60 mL/min/BSA 01/10/2021 11:04 AM CDT DTL Comment: ----ADDITIONAL INFORMATION---- Estimated GFR calculated using the 2009 CKD_EPI creatinine equation. Calcium, Total, S 9.5 8.6 - 10.0 mg/dL 01/10/2021 11:04 AM CDT DTL Glucose, S 94 70 - 140 mg/dL 01/10/2021 11:04 AM CDT DTL Blood (Blood, Venous) 01/10/2021 10:02 AM CDT 01/10/2021 10:20 AM CDT Viky Chappell APRN, C.N.P. LAB BLOOD ADD-ON [facility] [address] [place] [address], [facility] DTL [facility] [address] [place] [address] from Last 3 Months or Most Recently Relevant to Health Maintenance Advance Directives For more information, please contact: [phone] * Full Code (Latest Code Status on File) Date Activated Date Inactivated Comments 01/12/2021 12:10 PM 01/13/2021 2:27 PM Question Answer Comments Full Code: Not Discussed Due to: Patient not available
--- OUTSIDE RECORDS SUMMARY | 2024-04-26 02:05 | XMS_ITS ---
Author Organization [facility] Address [address] [place] [address] Care Team Providers Care Stock Parts Fabricator Name Role Phone Unavailable Unavailable Unavailable Surgery Details Not on file Complications Check Surgery Details section. Procedure Estimated Blood Loss Check Surgery Details section. Procedure Findings Check Surgery Details section. Procedure Specimens Taken Check Surgery Details section.
--- OUTSIDE RECORDS SUMMARY | 2024-04-26 02:05 | XMS_ITS | Referral Summary ---
Author Organization [facility] Address [address] [place] [address] Care Team Providers Care Teaching Specialists Name Role Phone Unavailable Primary Care Provider Unavailabl e Source Comments Patient records contain information from all sites at [facility]. For routine questions regarding patient records, call [phone] during business hours, M-F 8:00 AM - 5:00 PM Central Time. Record requests for emergency care only can be directed to [phone] at any time.[facility] Encounters Date Type Department Care Team Description 04/23/2024 Orders Only Department of Orthopedic Surgery in [address] [phone] Jeimy Muniz, SAMPLE CARD MAKER, C.N.P. Preoperative Exam (Primary Dx) 04/19/2024 Clinical Communication Department of Orthopedic Surgery in [place], [place] [address] [place] [phone] Kwasi Simeon M.D. Surgical Scheduling 04/03/2024 9:00 AM CDT Comprehensive Visit Department of Orthopedic Surgery in [place], [place] [address] [facility] [place] [address] Kwasi Simeon M.D. Pain Knee Left; Primary Osteoarthritis Knee Left 04/01/2024 9:45 AM CDT Clinical Communication Virtual Review in [place], [place] 200 [place] [address] Med Question from Last 3 Months Allergies No known active allergies Medications Medication [...] Overview: Added automatically from request for surgery [id number] Pain Knee Left Primary Osteoarthritis Knee Left Immunizations Name Administration Dates Next Due Influenza Split 07/16/2014 SARS-COV-2 (COVID-19) - PFIZ ER (Discontinued)(12 years or older) 08/31/2021 influenza vaccine quad (FLUZ ONE/FLUARIX) (6 months and older)(PF) 08/31/2021 Social History Tobacco Use Types Packs/Day Years Used Date Smoking Tobacco: Never Smokeless Tobacco: Never Tobacco Cessation:Counseling Given: Not Answered Alcohol Use Standard Drinks/Week Comments Yes 4 (1 standard drink = 0.6 oz pur e alcohol) [facility] Utilities Answer Date Recorded In the past 12 months has [facility] [employer], oil, or water [employer] threatened to shut off services in your [...] often do you attend chur ch or shinto services? Never 08/23/2022 Do you belong to any clubs o r organizations such as christianity groups, unions, fraternal or athletic groups, or [...] and heating? Not hard at all 08/23/2022 [facility] Occupat ional Health - Occupational [...] your living situation today? I have a [facility] place to live 01/01/2024 Education Answer Date Recorded What is the highest level of school you have completed or the highest degree you have received? 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 [address] [place] [address] Scheduled Procedures Name Priority Associated Diagnoses Date/Ti me ARTHROPLASTY UNICOMPARTMENTA L MEDIAL KNEE Primary Osteoarthritis Knee Left Medical Devices Implanted Type Area Outboard Motor Tester Device Identifier Shelf Expiration Date Model / Serial / Lot [place] Flex 10x2.5cm - Layton [id number] Implanted:Qty: 1 on 12/02/2014 Bone or Tissue Other/Legacy - See Implant Description Spinalgraft Technologies Description:Device Manufactu rer - Spinalgraft Technologies. Body Location - Other. spine fusion. Device Status Text - [id number]. Chips Cancellous Canpac 25cc - [place]ton [id number] Implanted:Qty: 1 on 12/02/2014 Bone or Tissue Other/Legacy - See Implant Description Allosource Description:Device Manufactu rer - Allosource. Body Location - Other. spine fusion. Device Status Text - [id number]. Screw Set Precept - [place]ton [id number] Implanted:Qty: 4 on 12/02/2014 Spine Implant NuVasive Description:Device Manufactu rer - Nuvasive Inc.. Device Status Text - SPINE [id number]. Huber Precept Ti 45mm Prebent Lordotic - [place]ton [id number] Implanted:Qty: 1 on 12/02/2014 Spine Implant NuVasive Description:Device Manufactu rer - Nuvasive Inc.. Device Status Text - SPINE [id number]. Huber Precept Ti 40mm Prebent Lordotic - [place]ton [id number] Implanted:Qty: 1 on 12/02/2014 Spine Implant NuVasive Description:Device Manufactu rer - Nuvasive Inc.. Device Status Text - SPINE [id number]. Screw Precept Shank 5.5 X 50mm Mod - Layton [id number] Implanted:Qty: 2 on 12/02/2014 Spine Implant NuVasive Description:Device Manufactu rer - Nuvasive Inc.. Device Status Text - SPINE [id number]. K-Wire Precept Nit Bevel Tip - Layton [id number] Implanted:Qty: 4 on 12/02/2014 Spine Implant NuVasive Description:Device Manufactu rer - Nuvasive Inc.. Device Status Text - SPINE [id number]. Screw Precept Polyaxial 10.5 X 50mm - Layton [id number] Implanted:Qty: 2 on 12/02/2014 Spine Implant NuVasive Description:Device Manufactu rer - Nuvasive Inc.. Device Status Text - [id number] [id number]. Screw Precept Tulip Modular - [place] [id number] Implanted:Qty: 2 on 12/02/2014 Spine Implant NuVasive Description:Device Manufactu rer - Nuvasive Inc.. Device Status Text - SPINE [id number]. Peek L (O) 8 X10 X 35mm 5 Degree - Layton [id number] Implanted:Qty: 1 on 12/02/2014 Spine Implant NuVasive Description:Device Manufactu rer - Nuvasive Inc.. Device Status Text - [id number] [id number]. Procedures Procedure Name Priority Date/Time Associated Diagnosis [...] the 2009 CKD_EPI creatinine equation. eGFR-Black/Afri can Bhutanese >90 >=60 mL/min/BSA 01/10/2021 11:04 AM CDT DTL Comment: ----ADDITIONAL INFORMATION---- Estimated GFR calculated using the 2009 CKD_EPI creatinine equation. Calcium, Total, S 9.5 8.6 - 10.0 mg/dL 01/10/2021 11:04 AM CDT DTL Glucose, S 94 70 - 140 mg/dL 01/10/2021 11:04 AM CDT DTL Blood (Blood, Venous) 01/10/2021 10:02 AM CDT 01/10/2021 10:20 AM CDT Viky Chappell APRN, C.N.P. LAB BLOOD ADD-ON [facility] [address] [place] [address], [facility] [address] [place] [address] from Last 3 Months or Most Recently Relevant to Health Maintenance Advance Directives For more information, please contact: [phone] * Full Code (Latest Code Status on File) Date Activated Date Inactivated Comments 01/12/2021 12:10 PM 01/13/2021 2:27 PM Question Answer Comments Full Code: Not Discussed Due to: Patient not available
--- OUTSIDE RECORDS SUMMARY | 2024-04-26 02:05 | XMS_ITS | Clinical Summary ---
Author Organization [facility] Address [address] [place] [address] Care Team Providers Care Instructional Supervisor Name Role Phone Self-Referral, Patient Primary Care Provider Source Comments You are receiving this document as you are listed as the primary care provider,follow-up provider, or the patient has been referred to you for consultation.This is in compliance with the Medicare and[facility] Cent[facility]aid EHR Incentive Program,which states Providers who transition their patient to another setting of careor provider of care or refers their patient to another provider of care shouldprovide summary care record for each transition of care or referral. [facility] Allergies No known active allergies Medications Medication Sig Dispensed Refills Start Date End Date Status beclomethasone (QVAR) 40 MCG/ACT inhaler Inhale 2 Puffs two times a day. Rinse mouth/gargle after use Active Active Problems Problem Noted Date Diagnosed Date Post-traumatic osteoarthritis of left knee 09/28 Social History Tobacco Use Types Packs/Day Years Used Date Smoking Tobacco: Never Smokeless Tobacco: Never Alcohol Use Standard Drinks/Week Comments Yes 3 (1 standard drink = 0.6 oz pur e alcohol) Sex and Gender Information Value Date Recorded Sex Assigned at Not on file Gender Identity Not on file Sexual Orientation Not on file Last Filed Vital Signs Vital Sign Reading Time Taken Comments Blood Pressure 130/77 09/11/2012 2:11 PM DREDGE MATE Pulse - - Temperature - - Respiratory Rate - - Oxygen Saturation - - Inhaled Oxygen Concentration - - Weight 68 kg (150 lb) 09/11/2012 2:11 PM DREDGE MATE Height 180.3 cm (5' 11) 09/11/2012 2:11 PM DREDGE MATE Body Mass Index 20.92 09/11/2012 2:11 PM DREDGE MATE Plan of Treatment Health Maintenance Due Date Last Done Comments Colon Cancer Screening Plan Due 1965 Hep C Screening (Preventive Services) 1965 PSA Screening Discussion 1965 HIV Screening (Preventive Services) 1981 Adult Preventive Visit 1983 HepB (1) 1984 Cholesterol 2000 Zoster/Shingles (1 of 2) 2015 DTaP/Tdap/Td (2 - Tdap) 10/01/2022 10/01/2012 COVID-19 Vaccine (3 - season) 2023 01/30/2021, 01/09/2021 Influenza (#1) 2024 09/01/2020, 04/2019, 06/30/2017, Additional history exists Pneumococcal Aged Out 04/27/2017 No longer eligi ble based on patient's age to complete this topic HepA Aged Out No longer eligi ble based on patient's age to complete this topic Hib Aged Out No longer eligi ble based on patient's age to complete this topic IPV (Polio) Aged Out No longer eligi ble based on patient's age to complete this topic MCV4 Aged Out No longer eligi ble based on patient's age to complete this topic Care Teams Instructional Supervisor Relationship Specialty Start Date End Date Self-Referral, Patient, [place] [address] PCP - General 10/8/13
== END 2024-04-25 08:10 | disposition home or self-care (01) ==
LOC: NFLDREF 04-26 02:03
PROVIDERS: PCP Family Medicine; Referring Provider Family Medicine; Visit Provider Family Medicine
DX: Z13.220 Encounter for screening for lipoid disorders (principal); Z13.1 Encounter for screening for diabetes mellitus; Z12.5 Encounter for screening for malignant neoplasm of prostate; Z13.6 Encounter for screening for cardiovascular disorders
CPT/HCPCS: 80053; 80061; G0103

== ENCOUNTER 2024-11-01 09:38 | Emergency (ER) | payer OTHER, SELFPAY ==
--- OUTSIDE RECORDS SUMMARY | 2024-11-01 09:40 | XMS_ITS ---
Author Organization [facility] Address [address] [place] [address] Care Team Providers Care Family Dentist Name Role Phone Unavailable Unavailable Unavailable Surgery Details Not on file Complications Check Surgery Details section. Procedure Estimated Blood Loss Check Surgery Details section. Procedure Findings Check Surgery Details section. Procedure Specimens Taken Check Surgery Details section.
--- OUTSIDE RECORDS SUMMARY | 2024-11-01 09:40 | XMS_ITS | Clinical Summary ---
Author Organization [facility] Address [place], [place] [address] Care Team Providers Care Lard Bleacher Name Role Phone Jess Tavarez Primary Care Provider [phone] Allergies No known active allergies Medications CETIRIZINE HCL (ZYRTEC ORAL) Take 1 Tab by mouth once daily. Active ALBUTEROL INHL Inhale 2 Puffs by mouth every 4 hours if needed. Active HYDROcodone-ac etaminophen, 5-325 mg, (NORCO) per tabletIndicati ons:Lumbar disc herniation Take 1 to 2 tablets by mouth every 4 hours if needed for Pain Max acetaminophen dose: 4000 mg in 24 hrs. 60 tablet 10/12/2017 4:14 PM QUALITY ASSURANCE GROUP LEADER 7 Active Active Problems Problem Noted Date Diagnosed Date Lumbar disc herniation 10/12/2017 Social History Tobacco Use Types Packs/Day Years Used Date Smoking Tobacco: Former Smokeless Tobacco: Never Alcohol Use Standard Drinks/Week Comments Yes 3 (1 standard drink = 0.6 oz pur e alcohol) Sex and Gender Information Value Date Recorded Sex Assigned at Not on file Legal Sex Male 8:00 PM CDT Gender Identity Not on file Sexual Orientation Not on file Obstetrics History Last Filed Vital Signs Vital Sign Reading Time Taken Comments Blood Pressure 115/77 10/13/2017 8:00 AM QUALITY ASSURANCE GROUP LEADER Pulse 50 10/13/2017 8:00 AM QUALITY ASSURANCE GROUP LEADER Temperature 37.1 C (98.7 F) 10/13/2017 8:00 AM QUALITY ASSURANCE GROUP LEADER Respiratory Rate 16 10/13/2017 8:00 AM QUALITY ASSURANCE GROUP LEADER Oxygen Saturation 100% 10/13/2017 8:00 AM QUALITY ASSURANCE GROUP LEADER Inhaled Oxygen Concentration - - Weight 66.1 kg (145 lb 11.6 oz) 017 11:59 AM QUALITY ASSURANCE GROUP LEADER Height 177.8 cm (5' 10) 10/12/2017 11: 59 AM QUALITY ASSURANCE GROUP LEADER Body Mass Index 20.91 10/12/2017 11:59 AM QUALITY ASSURANCE GROUP LEADER Plan of Treatment Health Maintenance Due Date Last Done Comments Tdap 1976 Depression screening for age 12+ 1977 HIV for age 15-65 1980 BMI (ht and wt on same day) for age 18+ 1983 Hepatitis C screening for age 18-79 1983 Tetanus booster 1985 Colonoscopy through age 75 2010 Lipids for age 45-75 2010 Pneumococcal series for age 50+ (1 of 1 - PCV) 2015 Zoster (shingles) series for age 50+ (1 of 2) 2015 COVID-19 vaccine series ( season) 2024 08/31/2021, 01/30/2021, 01/09/2021 Influenza for age 50-64 06/16/2024 Insurance [facility] Advance Directives * Full Code (Latest Code Status on File) Date Activated Date Inactivated Comments 10/12/2017 5:16 PM 10/13/2017 4:16 PM Question Answer Comments Code Status Discussion: Per Existing Order * Full Code Date Activated Date Inactivated Comments 10/12/2017 11:53 AM 10/12/2017 5:10 PM Question Answer Comments Code Status Discussion: Per Existing Order Care Teams Lard Bleacher Relationship Specialty Start Date End Date Jess Tavarez PCP - General Family Practice 10/06/17
--- OUTSIDE RECORDS SUMMARY | 2024-11-01 09:40 | XMS_ITS | Encounter Summary ---
Author Organization [facility] Address [address] [place] [address] Care Team Providers Care Retort Operator Name Role Phone None Reported, Pcp Primary Care Provider Unavail able Reason for Referral * Outpatient (Routine) - Closed Specialty Diagnoses / Procedures Referred By Alex duff Referred To Contact Diagnoses Arthroplasty Total Knee Replacement Status Post Left Procedures DX Knee Left Standing 3 Views Jeimy Muniz APRN, C.N.P. [address] [place] [phone] Phone: tel: fax: [facility] Referral ID Status Reason Start Date Expiration Date Visits Re quested Visits Authorized [id number] Closed 07/24/2024 07/24/2025 1 1 ING SERVICES DIRECTOR Reason for Visit * Outpatient (Routine) - Closed Specialty Diagnoses / Procedures Referred By Alex duff Referred To Contact Diagnoses Arthroplasty Total Knee Replacement Status Post Left Procedures DX Knee Left Standing 3 Views Jeimy Muniz APRN, C.N.P. [address] [place] [phone] Phone: tel: fax: [facility] Referral ID Status Reason Start Date Expiration Date Visits Re quested Visits Authorized [id number] Closed 07/24/2024 07/24/2025 1 1 Encounter Details Date Type Department Care Team (Latest Contact Info) Description 09/27/2024 8:28 AM IMAGING SERVICES DIRECTOR - 09/27/2024 11:59 PM IMAGING SERVICES DIRECTOR Hospital Encounter Department of Radiology in [place], [place] [address] [facility] [place] [address] Jeimy Muniz, YAZMIN, C.N.P. [address] [place] [address] Arthroplasty Total Knee Replacement Status Post Left Discharge Disposition: Home or Self Care Social History Tobacco Use Types Packs/Day Years Used Date Smoking Tobacco: Never Smokeless Tobacco: Never Alcohol Use Standard Drinks/Week Comments Yes 4 (1 standard drink = 0.6 oz pur e alcohol) [facility] Utilities Answer Date Recorded In the past 12 months has e electric, gas, oil, or water company threatened [...] often do you attend chur ch or samaritan services? Never 08/23/2022 Do you belong to [...] and heating? Not hard at all 08/23/2022 [facility] [place] of Occupat ional Health - Occupational Stress [...] living? No 01/01/2024 Nutrition Answer Date Recorded On average, how many serving s of [...] your living situation today? I have a [facility] place to live 01/01/2024 Education Answer Date Recorded What is the highest level of school you have completed or the highest degree you have received? Master's degree (e.g., MA, MS, Gabe, MEd, [employer], [place]) 12/30/2019 Sex and Gender Information Value Date Recorded Sex Assigned at Male 08/23/2022 3:00 PM IMAGING SERVICES DIRECTOR Legal Sex Male 7:55 PM IMAGING SERVICES DIRECTOR Gender Identity Male 07/09/2018 12:53 PM CDT Sexual Orientation Straight 07/09/2018 12 :53 PM CDT documented as of this encounter Medications at Time of Discharge acetaminophen (TylenoL) 500 mg tablet Take 2 tablets (1,000 mg total) by mouth every 6 (six) hours as needed for pain. 160 tablet 07/25/2024 aspirin 81 mg chewable tablet Chew 1 tablet (81 mg total) 2 (two) times a day with meals for 50 days. Recommended to minimize risk of blood clot. Once completed, resume the usual dose of aspirin your primary provider may recommend. 108 tablet 07/25/2024 docosahexaenoic acid/epa (FISH OIL ORAL) Take 1 capsule by mouth daily. fexofenadine (LINDA ALLERGY) 180 mg tablet Take 180 mg by mouth daily as needed for allergies. 11/03/2018 multivitamin tablet Take 1 tablet by mouth every morning. 10/31/2014 naproxen sodium (ALEVE/ANAPROX) 220 mg tablet Take 220 mg by mouth 2 (two) times a day as needed for pain. rosuvastatin (CRESTOR) 10 mg tablet Take 10 mg by mouth at bedtime. 12/30/2023 triamcinolone (Kenalog) 0.1 % cream 2 (two) times a day. 05/27/2024 Ventolin HFA 90 mcg/actuation inhaler Inhale 2 puffs every 4 (four) hours as needed for wheezing or shortness of breath. 09/08/2020 documented as of this encounter Plan of Treatment Not on file documented as of this encounter Procedures Procedure Name Priority Date/Time Associated Diagnosis Comments DX KNEE LEFT STANDING 3 VIEWS RAD - Routine (most inpatients and all outpatients) 09/27/2024 8:48 AM IMAGING SERVICES DIRECTOR Arthroplasty Total Knee Replacement Status Post Left documented in this encounter Results * DX Knee Left Standing 3 Views (09/27/2024 8:48 AM IMAGING SERVICES DIRECTOR) Anatomical Region Laterality Modality Lower Extremity, Knee, Muscu loskeletal RST LOS, Musculoskeletal ARZ LOS, Muskuloskeletal FLA LOS Left Digit al Radiography Impressions 09/27/2024 9:59 AM IMAGING SERVICES DIRECTOR Left TKA. No radiographic evidence for loosening. Moderate left knee joint effusion. Ecmg-zj-fxjrheia tricompartmental degenerative arthritis on the right. Full length views of both lower extremities obtained for orthopedic measurement purposes. Narrative 09/27/2024 9:59 AM IMAGING SERVICES DIRECTOR EXAM: DX HIP TO ANKLE STANDING, DX KNEE LEFT STANDING 3 VIEWS Procedure Note Get Pittman M.D. - 09/27/2024 EXAM: DX HIP TO ANKLE STANDING, DX KNEE LEFT STANDING 3 VIEWS IMPRESSION: Left TKA. No radiographic evidence for loosening. Moderate left knee jointeffusion. Vguz-ot-mfprigsy tricompartmental degenerative arthritis on theright. Full length views of both lower extremities obtained for orthopedicmeasurement purposes. Jeimy Muniz APRN, C.N.P. IMG DIAGNOSTIC IMAGI NG PROCEDURES Final Result documented in this encounter Visit Diagnoses Diagnosis Arthroplasty Total Knee Replacement Status Post Left documented in this encounter Care Teams Retort Operator Relationship Specialty Start Date End Date None Reported, Pcp PCP - General 08/23/24 documented as of this encounter
--- OUTSIDE RECORDS SUMMARY | 2024-11-01 09:40 | XMS_ITS | Referral Summary ---
Author Organization [facility] Address [address] [place] [address] Care Team Providers Care Central Stores Attendant Name Role Phone None Reported, Pcp Primary Care Provider Unavail able Source Comments Patient records contain information from all sites at [facility]. For routine questions regarding patient records, call [phone] during business hours, M-F 8:00 AM - 5:00 PM Central Time. Record requests for emergency care only can be directed to [phone] at any time.[facility] Encounters Date Type Department Care Team Description 09/27/2024 10:00 AM BUS MONITOR Office Visit Department of Orthopedic Surgery in [address] [phone] Kwasi Simeon M.D. Primary Osteoarthritis Knee Left (Primary Dx); Arthroplasty Total Knee Replacement Status Post Left 09/27/2024 8:28 AM BUS MONITOR - 09/27/2024 11:59 PM BUS MONITOR Hospital Encounter Department of Radiology in [address] [phone] Jeimy Muniz APRN, C.N.P. Arthroplasty Total Knee Replacement Status Post Left Discharge Disposition: Home or Self Care 09/27/2024 8:28 AM BUS MONITOR - 09/27/2024 11:59 PM BUS MONITOR Hospital Encounter Department of Radiology in [address] [phone] Jeimy Muniz APRN, C.N.P. Arthroplasty Total Knee Replacement Status Post Left Discharge Disposition: Home or Self Care 08/29/2024 Clinical Communication Department of Orthopedic Surgery in [place], [place] [address] [place] [phone] Kwasi Simeon M.D. 08/14/2024 Clinical Communication Department of Orthopedic Surgery in [place], [place] [address] [place] [address] Kwasi Simeon M.D. from Last 3 Months Allergies No known active allergies Medications * This document contains information received from the source organization and may not represent a complete record from that organization. multivitamin tablet Take 1 tablet by mouth every morning. 5 Active fexofenadine (LINDA ALLERGY) 180 mg tablet Take 180 mg by mouth daily as needed for allergies. 9 Active Ventolin HFA 90 mcg/actuation inhaler Inhale 2 puffs every 4 (four) hours as needed for wheezing or shortness of breath. 0 Active naproxen sodium (ALEVE/ANAPROX) 220 mg tablet Take 220 mg by mouth 2 (two) times a day as needed for pain. Active docosahexaenoic acid/epa (FISH OIL ORAL) Take 1 capsule by mouth daily. Active rosuvastatin (CRESTOR) 10 mg tablet Take 10 mg by mouth at bedtime. 4 Active triamcinolone (Kenalog) 0.1 % cream 2 (two) times a day. 4 Active aspirin 81 mg chewable tablet Chew 1 tablet (81 mg total) 2 (two) times a day with meals for 50 days. Recommended to minimize risk of blood clot. Once completed, resume the usual dose of aspirin your primary provider may recommend. 108 tablet 4 Active acetaminophen (TylenoL) 500 mg tablet Take 2 tablets (1,000 mg total) by mouth every 6 (six) hours as needed for pain. 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 Never 08/23/2022 Do you belong to any clubs o r organizations such as yazidi groups, unions, fraternal or athletic groups, or [...] and heating? Not hard at all 08/23/2022 [facility] [place] of Occupat ional Health - Occupational Stress [...] Master's degree (e.g., MA, MS, Gabe, MEd, MANAGER [employer], [place]) 12/30/2019 Sex and Gender Information Value Date Recorded Sex Assigned at Male 08/23/2022 3:00 PM BUS MONITOR Legal Sex Male 7:55 PM BUS MONITOR Gender Identity Male 07/09/2018 12:53 PM CDT Sexual Orientation Straight 07/09/2018 12 :53 PM CDT Last Filed Vital Signs Vital Sign Reading Time Taken Comments Blood Pressure 109/78 07/25/2024 2:02 PM CDT Pulse 60 07/25/2024 2:02 PM CDT Temperature 36.9 C (98.4 F) 07/25/2024 1:20 PM CDT Respiratory Rate 10 07/25/2024 2:02 PM CDT Oxygen Saturation 99% 07/25/2024 2:02 PM CDT Inhaled Oxygen Concentration - - Weight 66.3 kg (146 lb 2.6 oz) 07/25/2024 6:27 A M CDT Height 177 cm (5' 9.69) 07/25/2024 6:27 AM CDT Body Mass Index 21.16 07/25/2024 6:27 AM CDT Plan of Treatment Not on file Medical Devices Implanted Type Area [employer] Science Teacher Device Identifier Shelf Expiration Date Model / Serial / Lot [place] Flex 10x2.5cm - [place] [id number] Implanted:Qty: 1 on 12/02/2014 Bone or Tissue Other/Legacy - See Implant Description Spinal[employer]raft Technologies Description:Device Manufactu rer - Spinal[employer]raft Technologies. Body Location - Other. spine fusion. Device Status Text - [id number]. Chips Cancellous Canpac 25cc - [place] [id number] Implanted:Qty: 1 on 12/02/2014 Bone or Tissue Other/Legacy - See Implant Description Allosource Description:Device Manufactu rer - Allosource. Body Location - Other. spine fusion. Device Status Text - [id number]. Component Femoral Porous Brandt Na - [id number] Implanted:Qty: 1 on 07/25/2024 by Kwasi Simeon M.D. at [facility] Hardware e.g. pins/screws /rods Left: Knee DJO Global 10/20/2029 244-01-1 07 / / [id number] Bsplt Tib Emp Prs Ft Lt Sz7 - [id number] Implanted:Qty: 1 on 07/25/2024 by Kwasi Simeon M.D. at [facility] Knee Implant Left: Knee [employer] Global 07/07/2029 353-01-1 07 / / [id number] Knee E+ Insert Lt 7x10mm - [id number] Implanted:Qty: 1 on 07/25/2024 by Kwasi Simeon M.D. at [facility] Knee Implant Left: Knee Guavas Magali 03/26/2029 341-10-7 07 / / [id number] Screw Set Precept - [place] [id number] Implanted:Qty: 4 on 12/02/2014 Spine Implant NuVasive Description:Device Manufactu rer - Nuvasive Inc.. Device Status Text - [id number]. Huber Precept Ti 45mm Prebent Lordotic - [place] [id number] Implanted:Qty: 1 on 12/02/2014 Spine Implant NuVasive Description:Device Manufactu rer - Nuvasive Inc.. Device Status Text - SPINE [id number]. Huber Precept Ti 40mm Prebent Lordotic - [place] [id number] Implanted:Qty: 1 on 12/02/2014 Spine Implant NuVasive Description:Device Manufactu rer - Nuvasive Inc.. Device Status Text - SPINE [id number]. Screw Precept Shank 5.5 X 50mm Mod - [place] [id number] Implanted:Qty: 2 on 12/02/2014 Spine Implant NuVasive Description:Device Manufactu rer - Nuvasive Inc.. Device Status Text - SPINE [id number]. K-Wire Precept Nit Bevel Tip - [place] [id number] Implanted:Qty: 4 on 12/02/2014 Spine Implant NuVasive Description:Device Manufactu rer - Nuvasive Inc.. Device Status Text - SPINE [id number]. Screw Precept Polyaxial 10.5 X 50mm - [place] [id number] Implanted:Qty: 2 on 12/02/2014 Spine Implant NuVasive Description:Device Manufactu rer - Nuvasive Inc.. Device Status Text - SPINE [id number]. Screw Precept Tulip Modular - [place] [id number] Implanted:Qty: 2 on 12/02/2014 Spine Implant NuVasive Description:Device Manufactu rer - Nuvasive Inc.. Device Status Text - SPINE [id number]. Peek L (O) 8 X10 X 35mm 5 Degree - [place] [id number] Implanted:Qty: 1 on 12/02/2014 Spine Implant NuVasive Description:Device Manufactu rer - Nuvasive Inc.. Device Status Text - SPINE [id number]. Procedures Procedure Name Priority Date/Time Associated Diagnosis Comments DX HIP TO ANKLE STANDING RAD - Routine (most inpatients and all outpatients) 09/27/2024 8:49 AM BUS MONITOR Arthroplasty Total Knee Replacement Status Post Left DX KNEE LEFT STANDING 3 VIEWS RAD - Routine (most inpatients and all outpatients) 09/27/2024 8:48 AM BUS MONITOR Arthroplasty Total Knee Replacement Status Post Left BASIC METABOLIC PANEL, S/P Routine 07/24/2024 9:54 AM CDT Preoperative Exam from Last 3 Months or Most Recently Relevant to Health Maintenance Results * DX Hip to Ankle Standing (09/27/2024 8:49 AM BUS MONITOR) Anatomical Region Laterality Modality Lower Extremity, Hip, Femur, Knee, TibFib, Ankle, Musculoskeletal RST LOS, Musculoskeletal ARZ LOS, Muskuloskeletal FLA LOS N/A Digital Radiography Impressions 09/27/2024 9:59 AM BUS MONITOR Left TKA. No radiographic evidence for loosening. Moderate left knee joint effusion. Akgu-it-cfsofpzo tricompartmental degenerative arthritis on the right. Full length views of both lower extremities obtained for orthopedic measurement purposes. Narrative 09/27/2024 9:59 AM BUS MONITOR EXAM: DX HIP TO ANKLE STANDING, DX KNEE LEFT STANDING 3 VIEWS Procedure Note Get Pittman M.D. - 09/27/2024 EXAM: DX HIP TO ANKLE STANDING, DX KNEE LEFT STANDING 3 VIEWS IMPRESSION: Left TKA. No radiographic evidence for loosening. Moderate left knee jointeffusion. Zpew-wi-nebhffan tricompartmental degenerative arthritis on theright. Full length views of both lower extremities obtained for orthopedicmeasurement purposes. Jeimy Muniz APRN, C.N.P. [facility] DIAGNOSTIC IMAGI NG PROCEDURES Final Result * DX Knee Left Standing 3 Views (09/27/2024 8:48 AM BUS MONITOR) Anatomical Region Laterality Modality Lower Extremity, Knee, Muscu loskeletal RST LOS, Musculoskeletal ARZ LOS, Muskuloskeletal FLA LOS Left Digit al Radiography Impressions 09/27/2024 9:59 AM BUS MONITOR Left TKA. No radiographic evidence for loosening. Moderate left knee joint effusion. Vrhr-mb-wbdffqos tricompartmental degenerative arthritis on the right. Full length views of both lower extremities obtained for orthopedic measurement purposes. Narrative 09/27/2024 9:59 AM BUS MONITOR EXAM: DX HIP TO ANKLE STANDING, DX KNEE LEFT STANDING 3 VIEWS Procedure Note Get Pittman M.D. - 09/27/2024 EXAM: DX HIP TO ANKLE STANDING, DX KNEE LEFT STANDING 3 VIEWS IMPRESSION: Left TKA. No radiographic evidence for loosening. Moderate left knee jointeffusion. Sfzf-ps-jzmxowtz tricompartmental degenerative arthritis on theright. Full length views of both lower extremities obtained for orthopedicmeasurement purposes. Jeimy Muniz APRN, C.N.P. [facility] DIAGNOSTIC IMAGI NG PROCEDURES Final Result * Basic Metabolic Panel (07/24/2024 9:54 AM CDT) Potassium, S 4.5 3.6 - 5.2 mmol/L 07/24/2024 11:14 AM CDT DTL Sodium, S 139 135 - 145 mmol/L 07/24/2024 11:14 AM CDT DTL Chloride, S 102 98 - 107 mmol/L 07/24/2024 11:14 AM CDT DTL Bicarbonate, S 27 22 - 29 mmol/L 07/24/2024 11:14 AM CDT DTL Anion Gap 10 7 - 15 07/24/2024 11:14 AM CDT DTL BUN (Blood Urea Nitrogen), S 24 8 - 24 mg/dL 07/24/2024 11:14 AM CDT DTL Creatinine 0.92 0.74 - 1.35 mg/dL 07/24/2024 11:14 AM CDT DTL Estimated GFR (eGFR) >90 >=60 mL/min/BSA 07/24/2024 11:14 AM CDT DTL Comment: Estimated GFR calculated using the 2020 CKD_EPI creatinine equation. Calcium, Total, S 9.6 8.6 - 10.0 mg/dL 07/24/2024 11:14 AM CDT DTL Glucose, S 81 70 - 140 mg/dL 07/24/2024 11:14 AM CDT DTL Blood (Blood, Venous) 07/24/2024 9:54 AM CDT 07/24/2024 10:35 AM CDT Jeimy Muniz APRN, C.N.P. LAB BLOOD ADD-ON Fin al Result [facility] [address] [place] [address], [facility] [address] [place] [address] from Last 3 Months or Most Recently Relevant to Health Maintenance Insurance [employer] Advance Directives For more information, please contact: [phone] * Full Code (Latest Code Status on File) Date Activated Date Inactivated Comments 07/25/2024 12:54 PM 07/25/2024 5:41 PM Question Answer Comments Full Code: Discussed * Full Code Date Activated Date Inactivated Comments 01/12/2021 12:10 PM 01/13/2021 2:27 PM Question Answer Comments Full Code: Not Discussed Due to: Patient not available Care Teams Central Stores Attendant Relationship Specialty Start Date End Date None Reported, Pcp PCP - General 08/23/24
--- OUTSIDE RECORDS SUMMARY | 2024-11-01 09:40 | XMS_ITS | Encounter Summary ---
Author Organization [facility] Address [address] [place] [address] Care Team Providers Care Surgical Dental Assistant Name Role Phone None Reported, Pcp Primary Care Provider Unavail able Reason for Referral * Outpatient (Routine) - Closed Specialty Diagnoses / Procedures Referred By Anandaac t Referred To Contact Diagnoses Arthroplasty Total Knee Replacement Status Post Left Procedures DX Hip to Ankle Standing Jeimy Muniz APRN, C.N.P. [address] [place] [phone] Phone: tel: fax: [facility] Referral ID Status Reason Start Date Expiration Date Visits Re quested Visits Authorized [id number] Closed 07/24/2024 07/24/2025 1 1 OTIONS PRODUCER Reason for Visit * Outpatient (Routine) - Closed Specialty Diagnoses / Procedures Referred By Contac t Referred To Contact Diagnoses Arthroplasty Total Knee Replacement Status Post Left Procedures DX Hip to Ankle Standing Jeimy Muniz APRN, C.N.P. [address] [place] [phone] Phone: tel: fax: [facility] Referral ID Status Reason Start Date Expiration Date Visits Re quested Visits Authorized [id number] Closed 07/24/2024 07/24/2025 1 1 Encounter Details Date Type Department Care Team (Latest Contact Info) Description 09/27/2024 8:28 AM PROMOTIONS PRODUCER - 09/27/2024 11:59 PM PROMOTIONS PRODUCER Hospital Encounter Department of Radiology in [address] [place] [phone] Jeimy Muniz, YAZMIN, C.N.P. [address] [place] [address] Arthroplasty Total Knee Replacement Status Post Left Discharge Disposition: Home or Self Care Social History Tobacco Use Types Packs/Day Years Used Date Smoking Tobacco: Never Smokeless Tobacco: Never Alcohol Use Standard Drinks/Week Comments Yes 4 (1 standard drink = 0.6 oz pur e alcohol) [facility] Utilities Answer Date Recorded In [...] often do you attend chur ch or jain services? Never 08/23/2022 Do you belong to any clubs o r organizations such as yarsanism groups, unions, fraternal or athletic groups, or [...] and heating? Not hard at all 08/23/2022 [facility] [place] of Occupat ional Health - Occupational Stress [...] your living situation today? [facility] to live 01/01/2024 Education Answer Date Recorded What is the highest level of school you have completed or the highest degree you have received? Master's degree (e.g., MA, MS, Gabe, MEd, [employer] ASSOC[employer], [place]) 12/30/2019 Sex and Gender Information Value Date Recorded Sex Assigned at Male 08/23/2022 3:00 PM PROMOTIONS PRODUCER Legal Sex Male 7:55 PM PROMOTIONS PRODUCER Gender Identity Male 07/09/2018 12:53 PM CDT [...] inpatients and all outpatients) 09/27/2024 8:49 AM PROMOTIONS PRODUCER Arthroplasty Total Knee Replacement Status Post Left documented in this encounter Results * DX Hip to Ankle Standing (09/27/2024 8:49 AM PROMOTIONS PRODUCER) Anatomical Region Laterality Modality Lower Extremity, Hip, Femur, Knee, TibFib, Ankle, Musculoskeletal RST LOS, Musculoskeletal ARZ LOS, Muskuloskeletal FLA LOS N/A Digital Radiography Impressions 09/27/2024 9:59 AM PROMOTIONS PRODUCER Left TKA. No radiographic evidence for loosening. Moderate left knee joint effusion. Ehkg-xo-ouiiqxfk tricompartmental degenerative arthritis on the right. Full length views of both lower extremities obtained for orthopedic measurement purposes. Narrative 09/27/2024 9:59 AM PROMOTIONS PRODUCER EXAM: DX HIP TO ANKLE STANDING, DX KNEE LEFT STANDING 3 VIEWS Procedure Note Get Pittman M.D. - 09/27/2024 EXAM: DX HIP TO ANKLE STANDING, DX KNEE LEFT STANDING 3 VIEWS IMPRESSION: Left TKA. No radiographic evidence for loosening. Moderate left knee jointeffusion. Sqmv-pg-uitzonrt tricompartmental degenerative arthritis on theright. Full length views of both lower extremities obtained for orthopedicmeasurement purposes. Jeimy Muniz APRN, C.N.P. IMG DIAGNOSTIC IMAGI NG PROCEDURES Final Result documented in this encounter Visit Diagnoses Diagnosis Arthroplasty Total Knee Replacement Status Post Left documented in this encounter Care Teams Surgical Dental Assistant Relationship Specialty Start Date End Date None Reported, Pcp PCP - General 08/23/24 documented as of this encounter
--- OUTSIDE RECORDS SUMMARY | 2024-11-01 09:40 | XMS_ITS | Encounter Summary ---
Author Organization [facility] Address [address] [place] [id number] Care Team Providers Care Endbander Name Role Phone None Reported, Pcp Primary Care Provider Unavail able Reason for Referral * Physical Therapy (Routine) - Authorized Specialty Diagnoses / Procedures Referred By Alex duff Referred To Contact Physical Therapy Diagnoses Arthroplasty Total Knee Replacement Status Post Left Allan De Guzman M.D. [address] [place] [phone] Phone: tel: fax: Referral ID Status Reason Start Date Expiration Date Visits Requested Visits Authorized [id number] Authorized Patient Preference 4 03/29/2026 1 1 SETTER Reason for Visit * Outpatient (Routine) - Closed Specialty Diagnoses / Procedures Referred By Alex duff Referred To Contact Orthopedic Surgery Jeimy Muniz, [employer]DER[employer], C.N.P. [address] [place] [phone] Phone: tel: fax: Kwasi Simeon M.D. [address] [place] [phone] Phone: tel: fax: Referral ID Status Reason Start Date Expiration Date Visits Re quested Visits Authorized [id number] Closed 07/24/2024 01/23/2026 1 1 Encounter Details Date Type Department Care Team (Latest Contact Info) Description 09/27/2024 10:00 AM TOOL SETTER Office Visit Department of Orthopedic Surgery in [place], [place] [phone] Kwasi Simeon M.D. [address] [place] [address] Primary Osteoarthritis Knee Left (Primary Dx); Arthroplasty Total Knee Replacement Status Post Left Social History Tobacco Use Types Packs/Day Years Used Date Smoking Tobacco: Never Smokeless Tobacco: Never Alcohol Use Standard Drinks/Week Comments Yes 4 (1 standard drink = 0.6 oz pur e alcohol) [facility] Utilities Answer Date Recorded In the past [...] any clubs o r organizations such as anabaptist groups, unions, fraternal or athletic groups, or [...] and heating? Not hard at all 08/23/2022 [facility]ational Stress Questionnaire Answer Date [...] living situation today? I have a [place] place to live 01/01/2024 Education Answer Date Recorded What is the highest level of school you have completed or the highest degree you have received? 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 - 09/27/2024 10:00 AM CST SUBJECTIVE REASON FOR VISIT Left total knee arthroplasty follow-up evaluation. HISTORY OF PRESENT ILLNESS Krishna Rubin is a 59 y.o. male who presents to [facility] status post Left Total Knee Arthroplasty. The patient is recovering very well. He is back to going to the gym 6 times a week. He is back on astationary bike 3 times a week in his gradually increasing his range of motion with lowering of theseat. He can walk unlimited distance without gait aid. He does note some residual swelling as well as a tingling feeling in his common peroneal nerve distribution. He states that he did have L5-S1 motor weakness and neuropathy after a previous spine surgery. Denies fevers, chills, incisional drainage. The incision is well healed at this point. Pain reported: Knee Function Analysis (left knee ) Pain: mild (occasional) Location of pain: general Night pain: mild (occasional) Use of knee brace: no Supports: none Limp: none Distance walked: unlimited Stairs: normal up, down with handrail Rise from chair: able with ease (no arms) Limitation of activities: mild Patient's response: much better now Medications: no, occasional leave Other LE joint involvement (Ryan all that apply): none OBJECTIVE PHYSICAL EXAM General: Awake and alert. No acute distress Skin: Well-healed incision Neurologic: SILT DPN, SPN, tibial, sural, saphenous nerve distribution left lower extremity. Fires GSC, TA, EHL, FHL with full-strength. Vascular: 2+ DP pulse. Knee Function Analysis Extension (Active): 1 Flexion (Active): 100 degrees Extension (Passive): 1 Flexion (Passive): 100 degrees Medial-Lateral Instability (Measured in Full Extension): < 5 degrees Anterior-Posterior Instability (Measured in Position of Maximum Laxity: < 5 mm Angulation in Degrees: 0 Effusion:slight Synovitis:slight Muscle Strength: Modest Peripheral pulses: normal IMAGING Plain radiographs show well-fixed uncemented Left total knee implants in good position with evidence of early bony incorporation into the implant. ASSESSMENT / PLAN #1 Status post left total knee arthroplasty #1 Primary Osteoarthritis Knee Left #2 Arthroplasty Total Knee Replacement Status Post Left The patient is now 2 months status post uncemented left total knee arthroplasty. He has returned toactivities including cycling, [employer], walking at unlimited distance. The patient is very active and would like to get back to hiking and mountain biking by the spring. I think he is right on track to do so. He does have some residual lack of terminal extension and overall range of motion 1 degree to 100??. I think he is right on track, but we did discuss exercises to achieve terminal extension and to increase his flexion. He would also like to see a physical therapist to aid with quad and hamstring str engthening, range of motion which I think is a great idea. I have provided a physical therapy prescription for the patient to use with outside physical therapist. We discussed range of motion, quadriceps strengthening. We had a good discussion regarding ongoing care, activity recommendations, and follow-up. All questions were answered. Allan De Guzman MD Orthopedic Surgery, PGY-2 10:16 AM TOOL SETTER 09/27/2024 Cosigned by Kwasi Simeon M.D. at 09/27/2024 10:18 AM TOOL SETTER SETTER SETTER Associated attestation - Kwasi Simeon M.D. - 09/27/2024 10:18 AM TOOL SETTER I saw and evaluated the patient, participating in the mckeon portions of the service. I reviewed the resident/fellow???s note. I agree with the resident/fellow???s findings and plan. documented in this encounter Plan of Treatment Scheduled Referrals Name Type Priority Associated Diagnoses Orde r Schedule External referral PT (non-Katz) Outpatient Referral Routine Arthroplasty Total Knee Replacement Status Post Left Expected: 09/27/2024, Expires: 12/26/2025 documented as of this encounter Visit Diagnoses Diagnosis Primary Osteoarthritis Knee Left- Primary Arthroplasty Total Knee Replacement Status Post Left documented in this encounter Care Teams Endbander Relationship Specialty Start Date End Date None Reported, Pcp PCP - General 08/23/24 documented as of this encounter
--- OUTSIDE RECORDS SUMMARY | 2024-11-01 09:40 | XMS_ITS | Clinical Summary ---
Author Organization [facility] Address [address] [place] [address] Care Team Providers Care Home Energy Consultant Supervisor Name Role Phone Self-Referral, Patient Primary Care Provider Source Comments You are receiving this document as you are listed as the primary care provider,follow-up provider, or the patient has been referred to you for consultation.This is in compliance with the Medicare and[facility] EHR Incentive Program,which states Providers who transition their patient to another setting of careor provider of care or refers their patient to another provider of care shouldprovide summary care record for each transition of care or referral. [facility] Allergies No known active allergies Medications Medication [...] Comments Blood Pressure 130/77 09/11/2012 2:11 PM DRAW IN HAND Pulse - - Temperature - - Respiratory Rate - - Oxygen Saturation - - Inhaled Oxygen Concentration - - Weight 68 kg (150 lb) 09/11/2012 2:11 PM DRAW IN HAND Height 180.3 cm (5' 11) 09/11/2012 2:11 PM DRAW IN HAND Body Mass Index 20.92 09/11/2012 2:11 PM DRAW IN HAND Plan of Treatment Health Maintenance Due Date Last Done Comments Colon Cancer Screening Plan Due 1965 Hep C Screening (Preventive Services) 1965 PSA Screening Discussion 1965 HIV Screening (Preventive Services) 1981 Adult Preventive Visit 1983 HepB (1) 1984 Cholesterol 2000 Zoster/Shingles (1 of 2) 2015 DTaP/Tdap/Td (2 - Tdap) 10/01/2022 10/01/2012 COVID-19 Vaccine (3 - season) 2024 01/30/2021, 01/09/2021 Influenza (#1) 2024 09/01/2020, 04/2019, [...] age to complete this topic Care Teams Home Energy Consultant Supervisor Relationship Specialty Start Date End Date Self-Referral, Patient, [place] [address] PCP - General 10/8/13
--- OUTSIDE RECORDS SUMMARY | 2024-11-01 09:40 | XMS_ITS | Clinical Summary ---
Author Organization [facility] Address [address] [place] [address] Care Team Providers Care Halal Butcher Name Role Phone None Reported, Pcp Primary Care Provider Unavail able Source Comments Patient records contain information from all sites at [facility]. For routine questions regarding patient records, call [phone] during business hours, M-F 8:00 AM - 5:00 PM Central Time. Record requests for emergency care only can be directed to [phone] at any time.[facility] Allergies No known active allergies Medications * [...] your primary provider may recommend. 108 tablet Active acetaminophen (TylenoL) 500 mg tablet Take [...] (12/31/2020): Added automatically from request for surgery [id number] Pain Knee Left Primary Osteoarthritis Knee Left Encounters Date Type Department Care Team Description 09/27/2024 10:00 AM RESPIRATORY SERVICES MANAGER Office Visit Department of Orthopedic Surgery in [address] [phone] Kwasi Simeon M.D. Primary Osteoarthritis Knee Left (Primary Dx); Arthroplasty Total Knee Replacement Status Post Left 09/27/2024 8:28 AM RESPIRATORY SERVICES MANAGER - 09/27/2024 11:59 PM RESPIRATORY SERVICES MANAGER Hospital Encounter Department of Radiology in [address] [phone] Jeimy Muniz APRN, C.N.P. Arthroplasty Total Knee Replacement Status Post Left Discharge Disposition: Home or Self Care 09/27/2024 8:28 AM RESPIRATORY SERVICES MANAGER - 09/27/2024 11:59 PM RESPIRATORY SERVICES MANAGER Hospital Encounter Department of Radiology in [address] [phone] Jeimy Muniz APRN, C.N.P. Arthroplasty Total Knee Replacement Status Post Left Discharge Disposition: Home or Self Care 08/29/2024 Clinical Communication Department of Orthopedic Surgery in [place], [place] [address] [place] [phone] Kwasi Simeon M.D. 08/14/2024 Clinical Communication Department of Orthopedic Surgery in [place], [place] [address] [place] [phone] Kwasi Simeon M.D. from Last 3 Months Immunizations Name Administration [...] drink = 0.6 oz pur e alcohol) [facility] [employer] Answer Date Recorded In the past 12 months has e [place], gas, oil, or water [employer] threatened to shut off services in your [...] often do you attend chur ch or muslim services? Never 08/23/2022 Do you belong to any clubs o r organizations such as zoroastrian groups, unions, fraternal or athletic groups, or [...] and heating? Not hard at all 08/23/2022 [facility] - [...] your living situation today? I have a [facility] place to live 01/01/2024 Education Answer Date Recorded What is the highest level of school you have completed or the highest degree you have received? 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, ARGELIA) 12/30/2019 Sex and Gender Information Value Date Recorded Sex Assigned at Male 08/23/2022 3:00 PM RESPIRATORY SERVICES MANAGER Legal Sex Male 7:55 PM RESPIRATORY SERVICES MANAGER Gender Identity Male 07/09/2018 12:53 PM CDT [...] 07/25/2024 6:27 AM CDT Plan of Treatment Health Maintenance Due Date Last Done Comments CT Colonography 1965 Cologuard 1965 Colonoscopy 1965 Colorectal Cancer Surveillance 1965 HIV Screening 1965 Hepatitis C Screening 1965 Lipid (Cholesterol) Screening 1965 Hepatitis B Vaccines (1 of 3 - 19+ 3-dose series) 1984 Zoster Vaccines (1 of 2) 2015 Pneumococcal vaccine (50+ years) (2 of 2 - PCV) 04/27/2018 04/27/2017 COVID-19 Vaccine (4 - season) 2024 08/31/2021, 01/30/2021, 01/09/2021 Influenza Vaccine (#1) 2024 , 08/31/2021, 09/01/2020, Additional history exists Depression Screening (Annual PHQ-2) 10/16/2024 Fasting Glucose for Diabetes Screening 07/24/2027 07/24/2024, 01/10/2021 DTaP,Tdap,and Td Vaccines (3 - Td or Tdap) 03/30/2033 03/30/2023, 10/01/2012, 06/19/2002 IPV Vaccines Aged Out No longer eligi ble based on patient's age to complete this topic Medical Devices Implanted Type Area Acquisition Marketing Coordinator Device Identifier Shelf Expiration Date Model / Serial / Lot Candelaria Flex 10x2.5cm - Layton [id number] Implanted:Qty: 1 on 12/02/2014 Bone or Tissue Other/Legacy - See Implant Description Spinal[employer]raft Technologies Description:Device Manufactu rer - Spinal[employer]. Body Location - Other. spine fusion. Device Status Text - [facility]-[id number]. Chips Cancellous Canpac 25cc - [place] [id number] Implanted:Qty: 1 on 12/02/2014 Bone or Tissue Other/Legacy - See Implant Description Allosource Description:Device Manufactu rer - Allosource. Body Location - Other. spine fusion. Device Status Text - [facility]-[id number]. Component Femoral Porous Brandt Na - [id number] Implanted:Qty: 1 on 07/25/2024 by Kwasi Simeon M.D. at [facility] Hardware e.g. pins/screws /rods Left: Knee [employer] 10/20/2029 244-01-1 [id number] 1 Bsplt Tib Emp Prs Ft Lt Sz7 - [id number] Implanted:Qty: 1 on 07/25/2024 by Kwasi Simeon M.D. at [facility] Knee Implant Left: Knee [employer] 07/07/2029 353-01-1 [id number] Knee E+ Insert Lt 7x10mm - [id number] Implanted:Qty: 1 on 07/25/2024 by Kwasi Simeon M.D. at [facility] Knee Implant Left: Knee Encore Medical Magali 03/26/2029 341-10-7 [id number] Screw Set Precept - [place]ton [id number] Implanted:Qty: 4 on 12/02/2014 Spine Implant NuVasive Description:Device Manufactu rer - Nuvasive Inc.. Device Status Text - SPINE IMP-612744. Huber Precept Ti 45mm Prebent Lordotic - [place]ton [id number] Implanted:Qty: 1 on 12/02/2014 Spine Implant [employer]asive Description:Device Manufactu rer - Nuv[employer] Inc.. Device Status Text - SPINE IMP-538564. Huber Precept Ti 40mm Prebent Lordotic - [place]ton [id number] Implanted:Qty: 1 on 12/02/2014 Spine Implant NuVasive Description:Device Manufactu rer - Nuvasive Inc.. Device Status Text - SPINE IMP-966795. Screw Precept Shank 5.5 X 50mm Mod - Layton [id number] Implanted:Qty: 2 on 12/02/2014 Spine Implant NuVasive Description:Device Manufactu rer - Nuv[employer] Inc.. Device Status Text - SPINE IMP-925088. K-Wire Precept Nit Bevel Tip - [place]ton [id number] Implanted:Qty: 4 on 12/02/2014 Spine Implant NuVasive Description:Device Manufactu rer - Nuv[employer] Inc.. Device Status Text - SPINE IMP-378110. Screw Precept Polyaxial 10.5 X 50mm - [place]ton [id number] Implanted:Qty: 2 on 12/02/2014 Spine Implant NuVasive Description:Device Manufactu rer - Nuv[employer] Inc.. Device Status Text - SPINE IMP-425171. Screw Precept Tulip Modular - [place]ton [id number] Implanted:Qty: 2 on 12/02/2014 Spine Implant NuVasive Description:Device Manufactu rer - Nuv[employer] Inc.. Device Status Text - SPINE IMP-399558. Peek L (O) 8 X10 X 35mm 5 Degree - [place]ton [id number] Implanted:Qty: 1 on 12/02/2014 Spine Implant NuVasive Description:Device Manufactu rer - Nuvasive Inc.. Device Status Text - SPINE IMP-[id number]. Procedures Procedure Name Priority Date/Time Associated Diagnosis Comments DX HIP TO ANKLE STANDING RAD - Routine (most inpatients and all outpatients) 09/27/2024 8:49 AM RESPIRATORY SERVICES MANAGER Arthroplasty Total Knee Replacement Status Post Left DX KNEE LEFT STANDING 3 VIEWS RAD - Routine (most inpatients and all outpatients) 09/27/2024 8:48 AM RESPIRATORY SERVICES MANAGER Arthroplasty Total Knee Replacement Status Post Left BASIC METABOLIC PANEL, S/P Routine 07/24/2024 9:54 AM CDT Preoperative Exam from Last 3 Months or Most Recently Relevant to Health Maintenance Results * DX Hip to Ankle Standing (09/27/2024 8:49 AM RESPIRATORY SERVICES MANAGER) Anatomical Region Laterality Modality Lower Extremity, Hip, Femur, Knee, TibFib, Ankle, Musculoskeletal RST LOS, Musculoskeletal ARZ LOS, Muskuloskeletal FLA LOS N/A Digital Radiography Impressions 09/27/2024 9:59 AM RESPIRATORY SERVICES MANAGER Left TKA. No radiographic evidence for loosening. Moderate left knee joint effusion. Sbqv-gl-obvfvbth tricompartmental degenerative arthritis on the right. Full length views of both lower extremities obtained for orthopedic measurement purposes. Narrative 09/27/2024 9:59 AM RESPIRATORY SERVICES MANAGER EXAM: DX HIP TO ANKLE STANDING, DX KNEE LEFT STANDING 3 VIEWS Procedure Note Get Pittman M.D. - 09/27/2024 EXAM: DX HIP TO ANKLE STANDING, DX KNEE LEFT STANDING 3 VIEWS IMPRESSION: Left TKA. No radiographic evidence for loosening. Moderate left knee jointeffusion. Oexk-zh-vaswixtd tricompartmental degenerative arthritis on theright. Full length views of both lower extremities obtained for orthopedicmeasurement purposes. Jeimy Muniz APRN, C.N.P. IMG DIAGNOSTIC IMAGI NG PROCEDURES Final Result * DX Knee Left Standing 3 Views (09/27/2024 8:48 AM RESPIRATORY SERVICES MANAGER) Anatomical Region Laterality Modality Lower Extremity, Knee, Muscu loskeletal RST LOS, Musculoskeletal ARZ LOS, Muskuloskeletal FLA LOS Left Digit al Radiography Impressions 09/27/2024 9:59 AM RESPIRATORY SERVICES MANAGER Left TKA. No radiographic evidence for loosening. Moderate left knee joint effusion. Rcqw-ao-qrpyatug tricompartmental degenerative arthritis on the right. Full length views of both lower extremities obtained for orthopedic measurement purposes. Narrative 09/27/2024 9:59 AM RESPIRATORY SERVICES MANAGER EXAM: DX HIP TO ANKLE STANDING, DX KNEE LEFT STANDING 3 VIEWS Procedure Note Get Pittman M.D. - 09/27/2024 EXAM: DX HIP TO ANKLE STANDING, DX KNEE LEFT STANDING 3 VIEWS IMPRESSION: Left TKA. No radiographic evidence for loosening. Moderate left knee jointeffusion. Qloe-cx-tksxpbtu tricompartmental degenerative arthritis on theright. Full length views of both lower extremities obtained for orthopedicmeasurement purposes. Jeimy Muniz APRN, C.N.P. IMG DIAGNOSTIC IMAGI NG PROCEDURES Final Result * [...] C.N.P. LAB BLOOD ADD-ON Fin al Result [facility] [address] [place] [address], [facility] [address] [place] [address] from Last 3 Months or Most Recently Relevant to Health Maintenance Insurance [employer] Advance Directives For more information, please contact: [phone] * Full Code (Latest Code Status on File) Date Activated Date Inactivated Comments 07/25/2024 12:54 PM 07/25/2024 5:41 PM Question Answer Comments Full Code: Discussed * Full Code Date Activated Date Inactivated Comments 01/12/2021 12:10 PM 01/13/2021 2:27 PM Question Answer Comments Full Code: Not Discussed Due to: Patient not available Care Teams Halal Butcher Relationship Specialty Start Date End Date None Reported, Pcp PCP - General 08/23/24
[2024-11-01 10:01] VITALS: BP 135/81; PULSE 64; RESP 20; TEMP 36.6; O2SAT 100; BMI 21.5
--- NOTE | 2024-11-01 10:34 | XR_ITS ---
Patient: LISA ST Facility:?[facility] Patient ID:?[id number] Site Patient ID:?[id number] Site :?1965 Study:?XRay-Chest PORTABLE 2 IMAGES-11/01/2024 11:19:15 AM Ordering Physician:CARLA Final Report: Indication: Chest pain Technique: Chest 1 view Comparison: None Findings/Impression: Cardiovascular and mediastinum: Heart size and vasculature are normal in caliber and appearance. Lungs and pleural space: Lungs are clear. No sign of infiltrate or mass. No sign of pleural effusion. No pneumothorax. Bones and soft tissues: No acute findings. Dictated by Cody Allen MD @ 11/01/2024 11:33:03 AM Signed by:?Cody Allen MD @11/01/2024 11:33:03 AM (Electronic Signature)
--- NOTE | 2024-11-01 11:00 | ED_ITS ---
HPI - General Adult General Chief complaint: Extremity Pain/Injury, Upper Stated complaint: right shoulder and neck pain, from clinic Time Seen by Provider: 11/01/24 10:31 History of Present Illness HPI narrative: Patient is a 59-year-old gentleman who presents with less than 1 day of severe pain in his back medial to the scapula but lateral to the spine in the upper thorax posteriorly. He has not had any recent injuries are unusual activities. He has no cough no shortness of breath. Pain is 8/10 and severe. He seems to be able to improve the pain by putting his hand on the right above his head. Patient otherwise has no other complaints and has no previous history of similar problems. He I originally went to urgent care today was transferred Flexeril at home with no improvement. Related Data Previous Rx's ?Medication ?Instructions ?Recorded rosuvastatin 10 mg tablet 10 mg PO QHS #90 tabs 04/29/24 albuterol sulfate 90 mcg/actuation 2 puff inhalation Q6H PRN 05/27/24 aerosol inhaler shortness of breath or wheezing #8.5 grams triamcinolone acetonide 0.1 % 1 applic topical BID #453.6 grams 05/27/24 topical cream cyclobenzaprine 10 mg tablet 10 mg PO TID PRN muscle spasm #20 10/17/24 tabs Allergies Allergy/AdvReac Type Severity Reaction Status Date / Time No Known Drug Allergies Allergy Verified 11/01/24 13:12 Review of Systems Status of ROS: Reports: 10 or more systems reviewed and unremarkable except as noted in History and below [facility] Medical History Low back pain ?M54.50 - Low back pain, unspecified (ICD-10) Dermatitis ?L30.9 - Dermatitis, unspecified (ICD-10) Mild persistent asthma ?J45.30 - Mild persistent asthma, uncomplicated (ICD-10) Acute low back pain ?M54.50 - Low back pain, unspecified (ICD-10) Benign prostatic hyperplasia with urinary obstruction ?N40.1 - Benign prostatic hyperplasia with lower urinary tract symptoms (ICD- 10) ?N13.8 - Other obstructive and reflux uropathy (ICD-10) Prostatitis ?N41.9 - Inflammatory disease of prostate, unspecified (ICD-10) Erectile dysfunction ?N52.9 - Male erectile dysfunction, unspecified (ICD-10) Colon polyps ?K63.5 - Polyp of colon (ICD-10) Surgical History History of colonoscopy ?Z98.890 - Other specified postprocedural states (ICD-10) Social History Smoking Status: Never smoker Second hand tobacco smoke exposure: No How often do you have a drink containing alcohol: never How often do you have six or more drinks on one occasion: Never AUDIT-C Alcohol total score: 0 Non-prescribed substance use: denies use service: No Exam Narrative: Exam Narrative: EXAM GENERAL: Patient appears modestly uncomfortable holding his hand above his head on the right. EYES: No scleral icterus. LYMPH: No supraclavicular or cervical lymphadenopathy. SKIN: Visible skin seen during exam normal or with benign process only. EXT: No dependent lower extremity pedal edema. HEART: Regular rate and rhythm with no murmurs, rubs, or gallops. LUNGS: Clear to auscultation bilaterally with no crackles or wheezes. ABD: Soft, non tender, non distended. PSYCH: Good eye contact, speech is not pressured. Const: Vital Signs, click to edit/add: Vital Signs - 24 hr 11/01/24 10:01 11/01/24 12:09 Temperature 97.9 F Pulse Rate 53 L Pulse Rate [Pulse Oximeter] 64 Respiratory Rate 20 14 Blood Pressure 144/96 H Blood Pressure [Le ft Upper Arm] 135/81 Pulse Oximetry 100 100 Oxygen Delivery Me thod Room Air Course Course ED Course: Patient seen and examined. D-dimer troponin EKG chest x-ray CBC comprehensive metabolic panel pending. 30 mg of IM Toradol given. Vital Signs Vital signs: Initial Vital Signs Temperature 97.9 F 11/01/24 10:01 Temperature Source Temporal Artery Scan 11/01/24 10:01 Pulse Rate 64 11/01/24 10:01 Respiratory Rate 20 11/01/24 10:01 Blood Pressure 135/81 11/01/24 10:01 Blood Pressure Mean 99 11/01/24 10:01 Blood Pressure Position Sitting 11/01/24 10:01 Pulse Oximetry 100 11/01/24 10:01 Oxygen Delivery Method Room Air 11/01/24 10:01 Vital Signs Temperature 97.9 F 11/01/24 10:01 Pulse Rate 64 11/01/24 10:01 Respiratory Rate 20 11/01/24 10:01 Blood Pressure 135/81 11/01/24 10:01 Pulse Oximetry 100 11/01/24 10:01 Oxygen Delivery Method Room Air 11/01/24 10:01 Temperature 97.9 F 11/01/24 10:01 Pulse Rate 53 L 11/01/24 12:09 Respiratory Rate 14 11/01/24 12:09 Blood Pressure 144/96 H 11/01/24 12:09 Pulse Oximetry 100 11/01/24 12:09 Oxygen Delivery Method Room Air 11/01/24 10:01 Medications Administered Medications: Discontinued Medications Generic Name Dose Route Start Last Admin Trade Name Freq PRN Reason Stop Dose Admin Ketorolac Tromethamine 30 mg 11/01/24 10:34 11/01/24 11:23 Ketorolac 30 Mg/Ml Inj IM 11/01/24 10:35 30 mg ONCE ONE Administration Medical Decision Making [facility] Narrative Medical decision making narrative: Patient presents with severe pain in the right paraspinal region. He initially went to urgent care rate was sent to the emergency room as symptoms were quite severe. Evaluation included normal chest x-ray. He did have an elevated D- dimer and CT of the chest was unremarkable. He had no abnormalities on physical exam and vital signs reasonably stable. I did give him 30 mg of Toradol with improvement of his symptoms. At this time with his workup complete I did elect to treat him with short course of prednisone as well as oxycodone limited number at 8 as directed with close outpatient follow-up. Ice. Differential diagnosis includes but not limited to aortic dissection pulmonary embolism pneumothorax pneumonia chest wall trauma rib fracture. Lab Data Labs: Lab Results 11/01/24 Range/Units 11:20 WBC 4.93 (4.50-11.00) K/uL RBC 5.37 (4.30-5.90) m/uL Hgb 16.7 (13.5-17.5) gm/dL Hct 49.1 (37.0-53.0) % MCV 91 (80-100) fL MCH 31 (26-34) pg MCHC 34 (32-36) gm/dL RDW Coeff of Marifer 12.2 (11.5-15.5) % Plt Count 263 (140-440) K/uL Neut % (Auto) 62.1 (42.0-72.0) % Lymph % (Auto) 24.7 (20-44) % [place] % (Auto) 9.1 (0.0-11.0) % Eos % (Auto) 3.9 (0.0-7.0) % Baso % (Auto) 0.2 (0.0-3.0) % Neut # (Auto) 3.06 (1.7-7.0) K/uL Lymph # (Auto) 1.22 (0.90-2.90) K/uL [place] # (Auto) 0.40 (0.00-0.90) K/UL Eos # (Auto) 0.19 (0.00-0.50) K/uL Baso # (Auto) 0.01 (0.00-0.30) K/uL Abs Immat Gran (auto) 0.00 (0.00-0.30) K/uL Imm/Tot Granulo (auto) 0.0 % D-Dimer Quant (PE/DVT) 1.71 H (0.00-0.50) ug/ml Sodium 136 (135-149) mmol/L Potassium 3.9 (3.6-5.1) mmol/L Chloride 102 (96-114) mmol/L Carbon Dioxide 26 (20-32) mmol/L Anion Gap 8 (7-15) mEq/L BUN 25 (7-30) mg/dL Creatinine 0.6 (0.5-1.5) mg/dL Estimated Creat Clear 127.57 Estimated GFR 111 ml/min Glucose 113 (60-115) mg/dL Calcium 9.7 (8.4-10.6) mg/dL Total Bilirubin 0.8 (0.1-1.5) mg/dL AST 38 H (12-35) U/L ALT 44 (4-50) U/L Alkaline Phosphatase 50 (40-150) U/L Troponin I < 0.01 L (0.01-0.04) ng/mL Total Protein 7.8 (6.0-8.3) g/dL Albumin 4.7 (3.3-5.0) g/dL Discharge Plan Discharge Clinical Impression: Chest wall pain Patient Disposition: Home, Self-Care Condition: Stable Instructions: Chest Wall Pain (ED) Additional Instructions: Prednisone as directed Oxycodone as directed Ice Follow-up with your doctor as needed Activity Level: No Restrictions Discharge Diet: Regular Prescriptions: No Action rosuvastatin 10 mg tablet 10 mg PO QHS Qty: 90 3RF cyclobenzaprine 10 mg tablet 10 mg PO TID PRN (Reason: muscle spasm) Qty: 20 0RF triamcinolone acetonide 0.1 % cream 1 applic topical BID Qty: 453.6 0RF albuterol sulfate 90 mcg/actuation HFA aerosol inhaler 2 puff inhalation Q6H PRN (Reason: shortness of breath or wheezing) Qty: 8.5 6RF Follow Up/Referrals: Daniel Ford MD [Primary Care Provider] - Stand Alone Forms: [employer] Info Instructions
[2024-11-01] MEDS: KETOROLAC 30 MG/ML inj IM (11:23)
[2024-11-01 11:47] LABS: Basophils Absolute Auto 0.01 K/uL (0.00-0.30); Basophils Percent Auto 0.2 % (0.0-3.0); Eosinophils Absolute Auto 0.19 K/uL (0.00-0.50); Eosinophils Percent Auto 3.9 % (0.0-7.0); Hematocrit 49.1 % (37.0-53.0); Hemoglobin* 16.7 gm/dL (13.5-17.5); Lymphocytes Absolute Auto 1.22 K/uL (0.90-2.90); Lymphocytes Percent Auto 24.7 % (20-44); Mean Corpuscular HGB Conc 34 gm/dL (32-36); Mean Corpuscular Hemoglobin 31 pg (26-34); Mean Corpuscular Volume 91 fL (80-100); Monocytes Percent Auto 9.1 % (0.0-11.0); Neutrophils Absolute Auto 3.06 K/uL (1.7-7.0); Neutrophils Percent Auto 62.1 % (42.0-72.0); Platelet Count* 263 K/uL (140-440); RDW Coefficient of Variation % 12.2 % (11.5-15.5); Red Blood Count 5.37 m/uL (4.30-5.90); White Blood Count* 4.93 K/uL (4.50-11.00)
[2024-11-01 11:49] LABS: Slide Review Reflex No
[2024-11-01 11:59] LABS: Albumin* 4.7 g/dL (3.3-5.0)
[2024-11-01 12:00] LABS: Chloride* 102 mmol/L (96-114); Potassium* 3.9 mmol/L (3.6-5.1); Sodium* 136 mmol/L (135-149)
[2024-11-01 12:02] LABS: Alkaline Phosphatase* 50 U/L (40-150); Anion Gap 8 mEq/L (7-15); Aspartate Amino Transferase* 38 U/L (12-35); Bilirubin Total* 0.8 mg/dL (0.1-1.5); Blood Urea Nitrogen* 25 mg/dL (7-30); Carbon Dioxide* 26 mmol/L (20-32); Creatinine* 0.6 mg/dL (0.5-1.5); Est. Creatinine Clearance* 127.57; Estimated Glomerular Filt Rate 111 ml/min; Total Protein* 7.8 g/dL (6.0-8.3)
[2024-11-01 12:03] LABS: Alanine Aminotransferase* 44 U/L (4-50); Calcium* 9.7 mg/dL (8.4-10.6); Glucose* 113 mg/dL (60-115)
[2024-11-01 12:05] LABS: D Dimer Quantitative* 1.71 ug/ml (0.00-0.50)
[2024-11-01 12:09] VITALS: BP 144/96; PULSE 53; RESP 14; O2SAT 100
[2024-11-01 12:16] LABS: Troponin I* < 0.01 ng/mL (0.01-0.04)
--- NOTE | 2024-11-01 12:29 | CRLHL7_ITS ---
For Patients: As a result of the Century Cures Act, medical imaging exams and procedure reports are released immediately into your electronic medical record. You may view this report before your referring provider. If you have questions, please contact your health care provider. Indication: ELEVATED D DIMER Technique: CTA chest, pulmonary embolism protocol, utilizing 95 mL Isovue 370 Comparison: None Findings: Subcentimeter low-density left thyroid nodule, likely benign, for which no routine follow-up imaging is needed. No thoracic lymphadenopathy. The heart is at the upper limits of normal in size. No pericardial effusion. The thoracic aorta and pulmonary artery are normal in caliber. There is no pulmonary embolism. No focal airspace consolidation, pleural effusion, or pneumothorax. Trace biapical pleural/parenchymal scarring and minimal atelectatic changes seen along the medial aspects of the bilateral upper lobes. No suspicious pulmonary nodules or masses. The airways are patent. The visualized upper abdomen is unremarkable. The soft tissues and bones are unremarkable. Impression: No CT evidence of an acute process involving the chest; specifically, no pulmonary embolism. Please note that all CT scans at this facility use dose modulation, iterative reconstruction, and/or weight-based dosing when appropriate to reduce radiation dose to as low as reasonably achievable. Dictated by Pascual Camarillo MD @ 11/01/2024 1:30:36 PM (Electronically Signed)
== END 2024-11-01 13:54 | disposition home or self-care (01) ==
PROVIDERS: Emergency Provider Internal Medicine; PCP Family Medicine
DX: R07.89 Other chest pain (principal)
CPT/HCPCS: 36415; 71045; 71275; 80053; 84484; 85025; 85379; 93005; 96372; 99283; 99284; 99285; J1885; Q9967

== ENCOUNTER 2024-11-22 08:49 | Outpatient (CLI) | payer OTHER, SELFPAY | END 2024-11-22 08:50 | disposition home or self-care (01) | LOC: NFLDREF 11-29 02:35 | PROVIDERS: PCP Family Medicine; Referring Provider Family Medicine; Visit Provider Family Medicine | DX: E78.00 Pure hypercholesterolemia, unspecified (principal); R79.89 Other specified abnormal findings of blood chemistry; M79.2 Neuralgia and neuritis, unspecified | CPT/HCPCS: 80061; 80076 ==

== ENCOUNTER 2024-11-28 08:15 | Outpatient (RCR) | payer OTHER, SELFPAY | END 2025-01-21 12:17 | disposition home or self-care (01) | PROVIDERS: PCP Family Medicine; Visit Provider Student in an Organized Health Care Education/Training Program | DX: Z96.652 Presence of left artificial knee joint (principal); R26.9 Unspecified abnormalities of gait and mobility; R53.1 Weakness; Z51.89 Encounter for other specified aftercare | CPT/HCPCS: 97110; 97112; 97140; 97161 ==

== ENCOUNTER 2024-12-06 15:05 | Outpatient (CLI) | payer OTHER, SELFPAY ==
--- NOTE | 2024-12-06 15:30 | CRLHL7_ITS ---
For Patients: As a result of the Century Cures Act, medical imaging exams and procedure reports are released immediately into your electronic medical record. You may view this report before your referring provider. If you have questions, please contact your health care provider. Indication: Lower neck pain C5-C7 Technique: MRI cervical spine without contrast is obtained. Comparison: X-ray cervical spine November 28, 2024 Findings: Cervical vertebral body height and alignment is maintained signal. Preserved marrow of the cervical vertebrae. Spinal cord is normal in caliber. T2 hyperintense cord signal abnormality is identified at C6 level as seen on series number 4/9. Craniovertebral and cervical medullary junction is unremarkable. No suspicious intrathecal mass is identified. Reduction of intervertebral disc height is identified at C4-5, C5-6 and C6-7 levels. Multilevel degenerative changes are as detailed below. C1: Unremarkable C2-3: Minimal disc bulge without spinal canal or neural foraminal narrowing. C3-4: Central disc herniation and right-sided uncovertebral hypertrophy as well as bilateral facet arthropathy. There is indentation over the central thecal space. No significant spinal canal or neural foraminal stenosis. C4-5: Mild left greater than right bilateral facet arthropathy without significant spinal canal or neural foraminal stenosis. C5-6: There is central disc protrusion and bilateral facet arthropathy. Thickening of the left greater than right ligamentum flavum is present at this level. Bilateral uncovertebral hypertrophy is also identified. There is moderate to severe spinal canal stenosis with indentation of the ventral spinal cord and moderate to severe bilateral neural foraminal narrowing. C6-7: Central disc herniation causing indentation over the ventral thecal space and ventral aspect of spinal cord with moderate spinal canal stenosis. A cord hyperintense signal is identified within the left lateral aspect of spinal cord as seen on series number 6/24. There is bilateral facet arthropathy as well as uncovertebral hypertrophy causing moderate to severe bilateral neural foraminal narrowing. C7-T1: No spinal canal or neural foraminal narrowing. That is T2 hyperintense lesion spleen the left carotid vessels measuring 2.2 x 1.9 cm at C3 vertebral body level, incompletely assessed on these MRI cervical spine. Impression: 1. Multilevel degenerative changes, most pronounced at C5-C6 level causing lgnbujnw-aj-ylkbar spinal canal and bilateral neural foraminal stenosis. Suggestion of cord edema at C6 level. 2. Incompletely assessed T2 hyperintense lesion, splaying left carotid vessels. Differential includes carotid body tumor versus neurogenic tumor. Consider further assessment with CT/MRI soft tissue neck with and without contrast. Dictated by Michelle Han MD @ 12/09/2024 8:04:38 AM (Electronically Signed)
== END 2024-12-06 15:06 | disposition home or self-care (01) ==
LOC: MRI 15:06
PROVIDERS: PCP Family Medicine; Visit Provider Family Medicine
DX: M54.2 Cervicalgia (principal); M48.02 Spinal stenosis, cervical region; M79.2 Neuralgia and neuritis, unspecified
CPT/HCPCS: 72141

== ENCOUNTER 2024-12-13 10:44 | Outpatient (CLI) | payer OTHER, SELFPAY ==
--- NOTE | 2024-12-13 11:00 | CRLHL7_ITS ---
For Patients: As a result of the Century Cures Act, medical imaging exams and procedure reports are released immediately into your electronic medical record. You may view this report before your referring provider. If you have questions, please contact your health care provider. INDICATION: Soft tissue mass on MRI TECHNIQUE: CT of the neck with 75 ml Isovue 370 iodinated contrast agent. Coronal and sagittal reconstructions are included. COMPARISON: MRI 12/06/2024 FINDINGS: Redemonstrated is a oval faintly enhancing mass that splays the left internal and external carotid arteries measuring 2.5 x 2 x 2.7 cm (series 3, image 39 and series 4, image 68). Posterior displacement of the left internal carotid artery and left internal jugular vein. No lymphadenopathy. The oral cavity, nasopharyngeal, oropharyngeal and hypopharyngeal mucosal spaces are normal. No periapical dental disease. Incidental tonsilliths in the palatine tonsils bilaterally. The supraglottic, glottic and infraglottic larynx are normal. The airway including the trachea is normal and is patent. The parotid glands, submandibular and sublingual glands are normal in appearance. The thyroid gland is normal in appearance. No suspicious lytic or blastic osseous lesions. Degenerative changes most prominent at C5-6 and C6-7 levels. Severe neural foramen narrowing bilaterally at C5-6 with moderate spinal canal stenosis due to disc osteophyte complex and uncovertebral joint hypertrophy. Severe neural foraminal narrowing bilaterally and mild spinal canal stenosis at C6-7 due to uncovertebral joint hypertrophy and disc osteophyte complex. Air-fluid level in the maxillary sinuses with moderate mucosal thickening on the right side could represent acute sinusitis. The mastoid air cells are clear. Rightward deviation of the nasal septum. Visualized orbital and intracranial contents are normal. Supraclavicular regions, mediastinum and soft tissues of the imaged chest wall are normal. Visualized portions of the upper lungs are clear. IMPRESSION: 1. Oval 2.7 cm enhancing mass in the left carotid space splays the internal and external carotid arteries with posterior displacement of the ICA and left IJ vein. Differential considerations include schwannoma, less likely carotid body paraganglioma given only mild internal enhancement. 2. No lymphadenopathy. 3. Air-fluid level in the maxillary sinuses with moderate mucosal thickening on the right side could represent acute sinusitis. 4. Cervical spondylosis most prominent at C5-6 and C6-7 levels. Please note that all CT scans at this facility use dose modulation, iterative reconstruction, and/or weight-based dosing when appropriate to reduce radiation dose to as low as reasonably achievable. Dictated by Jered Lux MD @ 12/16/2024 10:49:12 AM (Electronically Signed)
== END 2024-12-13 10:45 | disposition home or self-care (01) ==
LOC: CT 10:44
PROVIDERS: PCP Family Medicine; Visit Provider Family Medicine
DX: R22.1 Localized swelling, mass and lump, neck (principal); J32.0 Chronic maxillary sinusitis; M47.892 Other spondylosis, cervical region
CPT/HCPCS: 70491; Q9967

== ENCOUNTER 2024-12-23 18:02 | Outpatient (CLI) | payer OTHER, SELFPAY ==
--- NOTE | 2024-12-23 18:15 | MR_ITS ---
Patient: LISA ST Facility:?[facility] Patient ID:?[id number] Site Patient ID:?[id number]. Site :?[id number] Study:?MRI-Spine Lumbar WO-12/23/2024 7:13:40 PM Ordering Physician:Zohreh Peck Final Report: INDICATION: Low back pain. TECHNIQUE : Lumbar spine MRI without contrast. COMPARISON: Lumbar spine MRI from 06/26/2020. FINDINGS : Five lumbar type vertebral bodies, with the last fully formed disc space designated as L5-S1. Normal lumbar lordotic curve. No recent compression fracture or marrow replacing process. Lower cord/conus signal is normal. The conus terminates at a normal location. No intradural lesion. Multiple renal cysts. Postsurgical changes at L2-3 discectomy with interbody spacer placement and dorsolateral instrumented fusion. No evidence of hardware loosening or other complication. Discs/Endplates: Moderate disc height loss and disc desiccation L3-4 and L4-5. Type 1 Modic changes involving the L4-5 endplates. Remaining discs are within normal limits. Findings at individual levels as follows: T11-12: No spinal canal or neural foraminal stenosis. T12-L1: No spinal canal or neural foraminal stenosis. L1-2: Mild disc bulge. No spinal canal or neural foraminal stenosis. L2-3: Postop changes of spinal fusion. Left foraminal endplate spurring with moderate left neuroforaminal stenosis. No right neural foraminal stenosis or spinal canal stenosis. L3-4: Moderate disc bulge. Bilateral facet arthrosis. Mild spinal canal stenosis, mild right and swej-lk-oqymqkup left neural foraminal stenosis. L4-5: A left-sided laminotomy. Moderate disc bulge with overlying osteophytic ridging, asymmetric to the right. And superimposed 5 millimeter AP dimension right subarticular disc extrusion with caudal migration which compresses the traversing tlxpm-wfshftw-tmlt-left L5 nerve roots. Txuy-dk-orcsgyst spinal canal stenosis. Moderate bilateral neural foraminal stenosis. L5-S1: Moderate disc bulge with tiny central protrusion component containing annular fissure. Bilateral facet arthrosis. Mild bilateral foraminal stenosis. No spinal canal stenosis. Imaged SI joints: Bilateral arthrosis. Imaged sacrum: Within normal limits. IMPRESSION: 1. No acute fracture or marrow replacing process. 2. At L2-3, interbody/dorsal lateral fusion without complication. Moderate left neural foraminal stenosis. Stable. 3. At L4-5, a left-sided laminotomy with recurrent right subarticular disc extrusion. Mild to moderate spinal canal stenosis and subarticular recess stenosis with compression of the traversing right greater than left L5 nerve roots. Moderate bilateral foraminal stenosis. Progressed since prior. Dictated by Go Sethi MD @ 12/24/2024 2:30:33 PM Signed by:?Go Sethi MD @12/24/2024 2:30:33 PM (Electronic Signature)
== END 2024-12-23 18:03 | disposition home or self-care (01) ==
LOC: MRI 18:02
PROVIDERS: PCP Family Medicine; Visit Provider Family Medicine
DX: M54.50 Low back pain, unspecified (principal); M48.061 Spinal stenosis, lumbar region without neurogenic claudication; M54.10 Radiculopathy, site unspecified
CPT/HCPCS: 72148

== ENCOUNTER 2025-04-03 08:00 | Outpatient (RCR) | payer OTHER, SELFPAY | END 2025-07-15 11:36 | disposition home or self-care (01) | PROVIDERS: PCP Family Medicine | DX: M48.00 Spinal stenosis, site unspecified (principal); Z51.89 Encounter for other specified aftercare | CPT/HCPCS: 97032; 97140; 97161 ==

== ENCOUNTER 2025-10-03 16:26 | Outpatient (CLI) | payer OTHER, SELFPAY ==
--- NOTE | 2025-10-03 16:45 | CRLHL7_ITS ---
For Patients: As a result of the Century Cures Act, medical imaging exams and procedure reports are released immediately into your electronic medical record. You may view this report before your referring provider. If you have questions, please contact your health care provider. Indication: Chronic sinusitis. Technique: Noncontrast axial CT of the paranasal sinuses with coronal reformats are provided. No comparisons. Findings: Postoperative changes compatible with bilateral maxillary antrostomies. There is moderate mucosal thickening within both maxillary sinuses with frothy material noted in both sinuses. Mucosal thickening and frothy material within the left frontal sinus. Trace mucosal thickening within the sphenoid and scattered ethmoid air cells. The right frontal sinus is clear. The visualized intraorbital contents appear within normal limits. Impression: 1. Moderate acute bilateral maxillary sinusitis with acute inflammatory changes in the left frontal sinus. 2. Milder inflammatory changes within the remainder of the paranasal sinuses as outlined above. 3. Postoperative changes compatible with bilateral maxillary antrostomies. Please note that all CT scans at this facility use dose modulation, iterative reconstruction, and/or weight-based dosing when appropriate to reduce radiation dose to as low as reasonably achievable. Dictated by Thierry Correa MD @ 10/07/2025 9:28:05 AM (Electronically Signed)
== END 2025-10-03 16:27 | disposition home or self-care (01) ==
LOC: CT 16:27
PROVIDERS: PCP Family Medicine; Visit Provider Family Medicine
DX: J32.9 Chronic sinusitis, unspecified (principal); J32.0 Chronic maxillary sinusitis
CPT/HCPCS: 70486